=== PATIENT | female | born 1955 ===

== ENCOUNTER 2016-11-14 02:39 | Inpatient (IN) | payer MEDICAID, OTHER ==
[2016-11-14 02:40] VITALS: BMI 32.9
--- NOTE | 2016-11-14 02:42 | C.PDOC ---
History Of Present Illness Patient presents to the ED with complaints of nausea, vomiting, and abdominal pain. Patient notes drinking some EtOH and having a heavy a few hours prior to arrival. Patient denies any fever, diarrhea, or any other complaints at this time. Time Seen by Provider: 11/14/16 02:41 History Per: Patient History/Exam Limitations: no limitations Onset/Duration Of Symptoms: Hrs Current Symptoms Are (Timing): Still Present Context: Food Severity: Moderate Pain Scale Rating Of: 6 Location Of Pain/Discomfort: Epigastric Radiation Of Pain To:: None Quality Of Discomfort: Sharp, "Pain" Associated Symptoms: Nausea, Vomiting. denies: Fever, Chills, Diarrhea Exacerbating Factors: Food Alleviating Factors: None Last Bowel Movement: Yesterday Recent travel outside of the [place]: No Abnormal Vaginal Bleeding: No Past Medical History Reviewed: Historical Data, Nursing Documentation, Vital Signs Vital Signs: Last Vital Signs Temp 98.1 F 11/14/16 02:43 Pulse 92 H 11/14/16 02:43 Resp 14 11/14/16 02:43 BP 158/89 H 11/14/16 02:43 Pulse Ox 98 11/14/16 02:43 - Medical History PMH: Anemia, Arthritis, Asthma, Colonic Polyps, HTN, Hypercholesterolemia Surgical History: Endoscopy Family History: States: Unknown Family Hx - Social History Hx Tobacco Use: No Hx Alcohol Use: No Hx Substance Use: No - Immunization History Hx Tetanus Toxoid Vaccination: No Hx Influenza Vaccination: No Hx Pneumococcal Vaccination: No Review Of Systems Constitutional: Negative for: Fever, Chills, Sweats ENT: Negative for: Throat Pain Cardiovascular: Negative for: Chest Pain Respiratory: Negative for: Cough, Shortness of Breath Gastrointestinal: Positive for: Nausea, Vomiting, Abdominal Pain. Negative for : Diarrhea Genitourinary: Negative for: Dysuria Musculoskeletal: Negative for: Back Pain Skin: Negative for: Rash, Lesions, Jaundice, Bruising Neurological: Negative for: Weakness Psych: Negative for: Anxiety Physical Exam - Physical Exam Appears: Non-toxic, No Acute Distress Skin: Warm, Dry Head: Atraumatic Eye(s): bilateral: Normal Inspection Oral Mucosa: Moist Neck: Supple Chest: Symmetrical Cardiovascular: Rhythm Regular Respiratory: No Accessory Muscle Use, No Rales, No Rhonchi, No Stridor, No Wheezing Gastrointestinal/Abdominal: Soft, Tenderness (RUQ tenderness), No Distention, No Guarding, No Rebound Back: Normal Inspection Extremity: Normal ROM, No Tenderness Extremity: Bilateral: Atraumatic, Normal Color And Temperature Neurological/Psych: Oriented x3, Normal Speech, Normal Cognition Gait: Steady ED Course And Treatment - Laboratory Results Result Diagrams: 11/14/16 03:16 11/14/16 03:16 O2 Sat by Pulse Oximetry: 92 Pulse Ox Interpretation: Normal Critical Care Time - Critical Care Note Total Time (in mins): 30 Documented critical care: time excludes all time spent performing seperately billable procedures. Disposition Discussed With Dr.: Vega Tariq Comment: accepted the pt on his service and took over the care at 5:18PM Doctor Will See Patient In The: ED Counseled Patient/Family Regarding: Studies Performed, Diagnosis - Disposition Disposition: HOSPITALIZED Disposition Time: 02:42 Condition: GUARDED - POA Present On Arrival: Poor Glycemic Control - Clinical Impression Clinical Impression: Pancreatitis, acute, Abdominal pain, Nausea, Vomiting - Scribe Statement The provider has reviewed the documentation as recorded by the Scribkrishan Bush All medical record entries made by the Evelioibe were at my direction and personally dictated by me. I have reviewed the chart and agree that the record accurately reflects my personal performance of the history, physical exam, medical decision making, and the department course for this patient. I have also personally directed, reviewed, and agree with the discharge instructions and disposition. Decision To Admit - Pt Status Changed To: Hospital Disposition Of: Inpatient - Admit Certification Admit to Inpatient:: After my assessment, the patient will require hospitalization for at least two midnights. This is because of the severity of symptoms shown, intensity of services needed, and/or the medical risk in this patient being treated as an outpatient. - InPatient: Physician Admission Certification:: After my assessment, the patient will require hospitalization for at least two midnights. This is because of the severity of symptoms shown, intensity of services needed, and/or the medical risk in this patient being treated as an outpatient. - . Bed Request Type: Regular Admitting Physician: Vega Tariq Patient Diagnosis: Abdominal pain, Nausea, Vomiting, Pancreatitis, acute
[2016-11-14] MEDS ORDERED: Sodium Chloride 0.9% 1,000 ML IV ONE (02:57)
[2016-11-14] MEDS ORDERED: Sodium Chloride 0.9% 1,000 ML ONE (03:04)
[2016-11-14 03:20] LABS: BASO % 0.3 % (0.0-2.0); EOS % 0.3 % (0.0-4.0); HEMATOCRIT 34.7 % (34.0-47.0); LYMPH # 1.5 K/uL (1.0-4.3); LYMPH % 16.9 % (20.0-40.0); MEAN CELL VOLUME 80.4 fL (81.0-99.0); MEAN CORPUSCULAR HEMOGLOBIN 26.4 pg (27.0-31.0); MEAN CORPUSCULAR HGB CONC 32.8 g/dL (33.0-37.0); MEAN PLATELET VOLUME 10.2 fL (7.2-11.7); MONO # 0.4 K/uL (0.0-0.8); MONO % 4.6 % (0.0-10.0); NRBC % 0.1 % (0.0-2.0); RED CELL DISTRIBUTION WIDTH 14.5 % (11.5-14.5); WHITE BLOOD COUNT 8.6 K/uL (4.8-10.8)
[2016-11-14 03:28] LABS: CHLORIDE 98 mmol/L (98-107); POTASSIUM 3.2 mmol/L (3.6-5.2); SODIUM 140 mmol/L (132-148)
[2016-11-14 03:29] LABS: RBC URINE < 1 /hpf (0-3); URINE BACTERIA RARE (<OCC); URINE BILIRUBIN NEGATIVE (NEGATIVE); URINE BLOOD NEGATIVE (NEGATIVE); URINE COLOR Yellow (YELLOW); URINE GLUCOSE (UA) 3+ mg/dL (Normal); URINE KETONE TRACE mg/dL (NEGATIVE); URINE LEUKOCYTE ESTERASE TRACE Leu/uL (Negative); URINE PROTEIN NEGATIVE (NEGATIVE); WBC URINE 1 /hpf (0-5)
[2016-11-14 03:30] LABS: ALB/GLOB RATIO 1.3 (1.0-2.1); ALKALINE PHOSPHATASE 192 U/L (38-126); BILIRUBIN,TOTAL 1.8 mg/dL (0.2-1.3); CARBON DIOXIDE 28 mmol/L (22-30); GFR AFRICAN-AMERICAN > 60
[2016-11-14 03:31] LABS: ALT/SGPT 398 U/L (9-52); BLOOD UREA NITROGEN 14 mg/dL (7-17); CALCIUM 8.9 mg/dl (8.6-10.4); GLUCOSE,RANDOM 237 mg/dL (65-105)
[2016-11-14 03:49] LABS: AST/SGOT 944 U/L (14-36)
[2016-11-14] MEDS ORDERED: Iodixanol 320 MG/ML 100 ML BOTTLE IV ONE (04:22)
--- NOTE | 2016-11-14 05:02 | CT ---
EXAM: CT Abdomen and Pelvis With Intravenous Contrast CLINICAL HISTORY: 61 years old, female; Pain; Abdominal pain; Localized; Right upper quadrant (ruq); Additional info: Ruq pain, elevated liver enzymes TECHNIQUE: Axial computed tomography images of the abdomen and pelvis with intravenous contrast. This CT exam was performed using one or more of the following dose reduction techniques: automated exposure control, adjustment of the mA and/or kV according to patient size, and/or use of iterative reconstruction technique. Coronal and sagittal reformatted images were created and reviewed. CONTRAST: 100 mL of visi administered intravenously. COMPARISON: No relevant prior studies available. FINDINGS: Lower thorax: The bilateral lung bases are clear. ABDOMEN: Liver: No acute findings. Gallbladder and bile ducts: The gallbladder is distended, without calcified stones. No significant intrahepatic biliary ductal dilation is identified. Prominence of the common bile duct is noted measuring 9.5 mm in medial to lateral dimension. Pancreas: There is diffuse peripancreatic inflammatory stranding and fluid, consistent with acute pancreatitis. Spleen: No acute findings. Adrenals: No acute findings. Kidneys and ureters: No acute findings. No hydronephrosis or renal calculi. No discrete solid mass. PELVIS: Bladder: No acute findings. Reproductive: No acute findings. Appendix: The air filled appendix is of normal caliber (series 2, image 62) . ABDOMEN and PELVIS: Stomach and bowel: No obstruction. A fat containing, nonobstructing supraumbilical hernia is identified. Peritoneum: As above. Lymph nodes: No pathologically enlarged lymph nodes. Vasculature: Unremarkable. Bones: No acute fracture. IMPRESSION: Findings consistent with acute pancreatitis, as detailed above.
--- NOTE | 2016-11-14 05:41 | CP.PCM.HP ---
<Olegario Jennie RODGERS - Last Filed: 11/14/16 06:08> History of Present Illness - History of Present Illness History of Present Illness: Patient is a 61 year old female with past medical history of HTN, DM, HLD, GERD, and pancreatitis presents with complaint of abdominal pain, nausea, and vomiting. Patient states that the abdominal pain began around 10pm yesterday evening following a celebratory dinner for her birthday. Patient states she knows that she needs to eat carefully and avoid alcohol due to her history of pancreatitis. Patient and her son and son's girlfriend went out for a 5 course meal accompanied by 5 bottles of wine. Patient vomited 4 times following the meal and told her son around midnight that she needed to go to the ER. Patient states the abdominal pain is in the epigastric region and moves from left to right but does not radiate anywhere else. Patient admits to dizziness with the nausea and vomiting but denies chest pain, palpitations, diarrhea, hematemesis, back pain. Patient states she had seen a business job titles recently and had changed her diet to cut out fat and had been feeling well prior to this event. Patient had prior history of social alcohol use but had completely cut it out due to history of pancreatitis. PMD: clinic PMHx: HTN, GERD, DM, HLD Meds: omeprazole 20mg, metformin 500mg BID, HCTZ 25, fenofibrate 160mg, amlodipine 10mg PSHx: hysterectomy with bilateral oophrectomy FamHx: mother and father with DM and HTN Social Hx: former 1/2 ppd smoker for 30 years, quit 11 years ago; lives with son , works as homemaker Present on Admission - Present on Admission Any Indicators Present on Admission: No Review of Systems - Constitutional Constitutional: absent: Chills, Fever - EENT Eyes: absent: Change in Vision Ears: Dizziness Nose/Mouth/Throat: absent: Nasal Congestion - Cardiovascular Cardiovascular: absent: Chest Pain, Diaphoresis, Dyspnea, Pain Radiating to Arm/ Neck/Jaw, Leg Edema, Palpitations, Rapid Heart Rate - Respiratory Respiratory: absent: Cough, Dyspnea - Gastrointestinal Gastrointestinal: Abdominal Pain, Nausea, Vomiting. absent: Constipation, Diarrhea, Hematemesis, Hematochezia, Loose Stools - Genitourinary Genitourinary: absent: Difficulty Urinating, Dysuria - Musculoskeletal Musculoskeletal: absent: Back Pain - Integumentary Integumentary: absent: Rash, Skin Pain, Jaundice - Neurological Neurological: Dizziness. absent: Focal Weakness, Weakness - Psychiatric Psychiatric: absent: Behavioral Changes Past Patient History - Past Medical History & Family History Past Medical History?: Yes - Past Social History Smoking Status: Never Smoked - CARDIAC Hx Hypercholesterolemia: Yes Hx Hypertension: Yes - PULMONARY Hx Asthma: Yes - NEUROLOGICAL Hx Neurological Disorder: No - HEENT Hx HEENT Problems: No - RENAL Hx Chronic Kidney Disease: No - ENDOCRINE/METABOLIC Hx Endocrine Disorders: Yes Hx Diabetes Mellitus Type 2: Yes - HEMATOLOGICAL/ONCOLOGICAL Hx Anemia: Yes - INTEGUMENTARY Hx Dermatological Problems: No - MUSCULOSKELETAL/RHEUMATOLOGICAL Hx Arthritis: Yes - GASTROINTESTINAL Hx Gall Bladder Disease: Yes Hx Pancreatitis: Yes - GENITOURINARY/GYNECOLOGICAL Hx Genitourinary Disorders: No - PSYCHIATRIC Hx Substance Use: No - SURGICAL HISTORY Hx Surgeries: Yes Hx Hysterectomy: Yes - ANESTHESIA Hx Anesthesia: Yes Hx Anesthesia Reactions: No Hx Malignant Hyperthermia: No Meds Allergies/Adverse Reactions: Allergies Allergy/AdvReac Type Severity Reaction Status Date / Time aspirin AdvReac Mild VOMITING Verified 11/14/16 02:46 Physical Exam - Constitutional Appears: Non-toxic, No Acute Distress - Head Exam Head Exam: ATRAUMATIC, NORMOCEPHALIC - Eye Exam Eye Exam: EOMI, Normal appearance, PERRL - ENT Exam ENT Exam: Mucous Membranes Dry - Neck Exam Neck exam: Negative for: Lymphadenopathy, Tenderness - Respiratory Exam Respiratory Exam: Clear to Auscultation Bilateral. absent: Rales, Rhonchi, Wheezes - Cardiovascular Exam Cardiovascular Exam: +S1, +S2 - GI/Abdominal Exam GI & Abdominal Exam: Normal Bowel Sounds, Soft, Tenderness (epigastric). absent : Distended, Firm, Guarding - Extremities Exam Extremities exam: Positive for: normal inspection. Negative for: calf tenderness, pedal edema - Neurological Exam Neurological exam: Alert - Psychiatric Exam Psychiatric exam: Normal Affect - Skin Skin Exam: Normal Color, Warm Results - Vital Signs Recent Vital Signs: Last Vital Signs Temp 98.5 F 11/14/16 05:17 Pulse 65 11/14/16 05:17 Resp 18 11/14/16 05:17 BP 122/82 11/14/16 05:17 Pulse Ox 92 L 11/14/16 05:18 - Labs Result Diagrams: 11/14/16 03:16 11/14/16 03:16 Assessment & Plan (1) Pancreatitis, acute Assessment and Plan: lipase [address]221 CT abdomen: diffuse peripancreatic inflammatory stranding and fluid consistent with acute pancreatitis patient NPO IVF zofran and morphine prn follow up lipid panel Status: Acute (2) Diabetes Assessment and Plan: hold home metformin for now ISS with accuchecks Status: Acute (3) HLD (hyperlipidemia) Assessment and Plan: will check lipid panel holding home medication for now Status: Acute (4) HTN (hypertension) Assessment and Plan: holding home medication amlodipine 10mg and HCTZ 25mg for now, will restart if necessary Status: Acute (5) Prophylactic measure Assessment and Plan: protonix 40mg daily SCDs Status: Acute <Vega Tariq - Last Filed: 11/14/16 06:35> Results - Vital Signs Recent Vital Signs: Last Vital Signs Temp 98.5 F 11/14/16 05:17 Pulse 65 11/14/16 05:17 Resp 18 11/14/16 05:17 BP 122/82 11/14/16 05:17 Pulse Ox 92 L 11/14/16 05:18 - Labs Result Diagrams: 11/14/16 03:16 11/14/16 03:16 Assessment & Plan - Date & Time Date: 11/14/16 (I have seen and examined the patient. I agree with the findings and plan of care as documented by Dr. Melvin. Patient with acute pancreatitis. History of hyperlipidemia. Check FLP. CT positive for acute pancreatitis as per ED physician. NPO. IVF. Symptomatic treatment. Monitor for acute changes.) Time: 06:34 Attending/Attestation - Attestation I have personally seen and examined this patient.: Yes I have fully participated in the care of the patient.: Yes I have reviewed all pertinent clinical information: Yes
[2016-11-14] MEDS: Sodium Chloride 0.9% 1,000 ML IV SCH ×3 (06:14→21:57)
[2016-11-14 06:52] LABS: CHOLESTEROL 211 mg/dL (0-199)
[2016-11-14] MEDS: (Novolin R) Insulin Human Regular 100 units/ml vial SC SCH ×4 (07:51→21:57)
[2016-11-14] MEDS ORDERED: Potassium Chloride 20 mEq ER Tab PO STA (09:51)
--- NOTE | 2016-11-14 17:17 | CP.PCM.CON ---
<Jessie Dumont - Last Filed: 11/14/16 18:30> History of Present Illness - History of Present Illness History of Present Illness: General surgery Dr. Gerard CC: Epigastric abdominal pain HPI: 61 y/o F w/ PMHx of pancreatitis, DM2, GERD, HLD, and HTN presents to the ED W/ c/o epigastric abd pain and nausea. The pain is described as constant, sharp and began ~10 pm yesterday night following her birthday dinner, which involved a 5-course meal and 5 bottles of wine. pain is localized to the epigastric region w/ radiation from left to right. Pain is >10/10 at its worst but is currently a 6-7/10 currently due to the morphine. Pt has a Hx of gallstone pancreatitis and had been instructed to avoid alcohol and eat healthier. Pt admits to vomiting x 7-8 episodes after 10 pm and was brought to the ER by her son around midnight. Pt denies BM since pain began. Pt is requesting surgery as she states that these episodes of pancreatitis have become bothersome and family members have reported success with surgery. Pt admits to N/V, epigastric abd pain, bloating. Pt denies F/V, CP, palpitations, SOB, D/C, melena, hemtochezia, dysuria, hematuris. PMHx: DM2, GERD, HLD, HTN Meds: reviewed in chart Allergy: ASA - vomiting PSHx:: HOMER w/ BSO SHx: former smoker, quit 11 years ago, 1/2ppd x 30yrs; admits to previous EtOH abuse, quit drinking after several episodes of pancreatitis; lives w/ son; works as a homemaker. FHx: DM, HTN Review of Systems - Review of Systems All systems: reviewed and no additional remarkable complaints except (what is in HPI) Past Patient History - Past Medical History & Family History Past Medical History?: Yes - Past Social History Smoking Status: Former Smoker - CARDIAC Hx Hypercholesterolemia: Yes Hx Hypertension: Yes - PULMONARY Hx Respiratory Disorders: No - NEUROLOGICAL Hx Neurological Disorder: No - HEENT Hx HEENT Problems: No - RENAL Hx Chronic Kidney Disease: No - ENDOCRINE/METABOLIC Hx Endocrine Disorders: Yes Hx Diabetes Mellitus Type 2: Yes - HEMATOLOGICAL/ONCOLOGICAL Hx Anemia: Yes - INTEGUMENTARY Hx Dermatological Problems: No - MUSCULOSKELETAL/RHEUMATOLOGICAL Hx Arthritis: Yes Hx Falls: No - GASTROINTESTINAL Hx Gall Bladder Disease: Yes Hx Pancreatitis: Yes - GENITOURINARY/GYNECOLOGICAL Hx Genitourinary Disorders: No - PSYCHIATRIC Hx Psychophysiologic Disorder: No - SURGICAL HISTORY Hx Surgeries: Yes Hx Hysterectomy: Yes - ANESTHESIA Hx Anesthesia: Yes Hx Anesthesia Reactions: No Hx Malignant Hyperthermia: No Meds Allergies/Adverse Reactions: Allergies Allergy/AdvReac Type Severity Reaction Status Date / Time aspirin AdvReac Mild VOMITING Verified 11/14/16 02:46 - Medications Medications: Current Medications Sodium Chloride (Sodium Chloride 0.9%) 1,000 mls @ 150 mls/hr IV .[id number] [facility] Last Admin: 11/14/16 13:47 Dose: Not Given Insulin Human Regular (Novolin R) 0 unit SC ACHS [facility] PRN Reason: Protocol Last Admin: 11/14/16 11:33 Dose: Not Given Morphine Sulfate (Morphine) 2 mg IVP Q4 PRN PRN Reason: Pain, moderate (4-7) Last Admin: 11/14/16 11:29 Dose: 2 mg Ondansetron HCl (Zofran Inj) 4 mg IVP DAILY@ONCE PRN PRN Reason: Nausea/Vomiting Last Admin: 11/14/16 11:29 Dose: 4 mg Pantoprazole Sodium (Protonix Inj) 40 mg IVP DAILY [facility] Last Admin: 11/14/16 09:34 Dose: 40 mg Pneumococcal Polyvalent Vaccine (Pneumovax 23 Vaccine) 0.5 ml IM .ONCE ONE Stop: 11/16/16 10:01 Physical Exam - Constitutional Appears: Non-toxic, No Acute Distress - Head Exam Head Exam: NORMAL INSPECTION - ENT Exam ENT Exam: Mucous Membranes Moist - Respiratory Exam Respiratory Exam: Clear to Auscultation Bilateral, NORMAL BREATHING PATTERN. absent: Accessory Muscle Use, Respiratory Distress - Cardiovascular Exam Cardiovascular Exam: RRR - GI/Abdominal Exam GI & Abdominal Exam: Diminished Bowel Sounds, Guarding (voluntary), Soft, Tenderness (diffusely TTP w/ RUQ/Epigastric greatest ). absent: Distended, Rebound Results - Vital Signs Recent Vital Signs: Last Vital Signs Temp 98 F 11/14/16 07:32 Pulse 64 11/14/16 08:58 Resp 16 11/14/16 07:32 BP 119/79 11/14/16 07:32 Pulse Ox 96 11/14/16 07:32 - Labs Result Diagrams: 11/14/16 03:16 11/14/16 03:16 Labs: Laboratory Results - last 24 hr 11/14/16 11/14/16 11/14/16 06:15 07:14 11:28 POC Glucose (mg/dL) 201 H 117 H Triglycerides 51 Cholesterol 211 H LDL Cholesterol Direct 77 HDL Cholesterol 89 H 11/14/16 16:21 POC Glucose (mg/dL) 91 Triglycerides Cholesterol LDL Cholesterol Direct HDL Cholesterol - Imaging and Cardiology CT scan - abdomen Status: Image reviewed by me, Report reviewed by me US - abdomen Status: Pending Assessment & Plan - Assessment and Plan (Free Text) Assessment: 61 y/o F Acute pancreatitis 2/2 gallstones vs EtOH - NPO, IVF@>150 - Zofran 4mg Q4 PRN nausea - Dilaudid 1mg Q4 PRN pain - Zosyn 3.375mg Q8h - GI consult - will likely need MRCP/ERCP - f/u Abd US - trend LFTs and Lipase - possible surgery once LFTs and Lipase normalize. Pt discussed w/ Dr. Rajani Dumont DO PGY1 <Lester Gerard - Last Filed: 11/20/16 10:26> Results - Vital Signs Recent Vital Signs: Last Vital Signs Temp 99.5 F 11/19/16 07:40 Pulse 81 11/19/16 08:00 Resp 20 11/19/16 07:40 BP 137/75 11/19/16 07:40 Pulse Ox 92 L 11/19/16 07:40 - Labs Result Diagrams: 11/18/16 08:19 11/18/16 08:19 Attending/Attestation - Attestation I have personally seen and examined this patient.: Yes I have fully participated in the care of the patient.: Yes I have reviewed all pertinent clinical information: Yes Notes (Text): 11/20/16 10:24 Pt was seen and examined at bedside on 11/15/16 Agree with above note and assessment Pt with GS pancreatitis with Cholelithiasis PE: Neuro : AAOx3, GCS : 15 , No focal deficite Skin: warm, dry, no ulceration Extremity: 2 + Palpable pulses, no edema, no deformity. MRCP today GI consult C.w IV antibiotics We will f/u Plan d.w pt in detail
--- NOTE | 2016-11-14 17:48 | US ---
HISTORY: cbd stone,gallstone COMPARISON: Comparison is made to the previous same-day CT of the abdomen and pelvis. TECHNIQUE: Sonographic evaluation of the abdomen. FINDINGS: LIVER: Measures 14 cm. Mild diffuse increased echogenicity of the liver parenchyma. No mass. No intrahepatic bile duct dilatation. GALLBLADDER: Multiple gallstones are seen. Positive sonographic Williamson's sign reported by the dental technologist. However no definite evidence of significant pericholecystic fluid or significant gallbladder wall thickening. COMMON BILE DUCT: Measures 7 mm. No stones. No dilatation. PANCREAS: Limited assessment of the pancreas due to overlying bowel gas. Heterogeneous echotexture of the visualized portion of the pancreas consistent with the patient's history of acute pancreatitis. RIGHT KIDNEY: Measures 12.5 x 6.1 x 4.9cm. Again seen is a large cystic lesion at the right kidney measures 4.7 x 4.7 x 5.2 centimeter. LEFT KIDNEY: Measures 9.5 x 6.2 x 5.2cm. Normal echogenicity. No calculus, mass, or hydronephrosis. SPLEEN: Normal in size and contour. No mass. AORTA: No aneurysmal dilatation. IVC: Unremarkable. OTHER FINDINGS: None. IMPRESSION: Multiple gallstones without definite ultrasound evidence of acute cholecystitis. Upper normal size of proximal CBD. The possibility of small stone at the distal CBD is not totally excluded in this study. Heterogeneous pancreas obscured by overlying bowel gas. 5.2 centimeters cystic lesion at the right kidney.
--- NOTE | 2016-11-14 18:45 | CP.PCM.CON ---
History of Present Illness - History of Present Illness History of Present Illness: 61 yo female admitted with acute onset of epigastric pain and vomiting following a celebratory meal included five courses and shared five bottles of wine with family members. Son claims she had 3-4 glasses of wine. SHe was found to have acute pancreatitis and elevated transaminiases. CT and Sonogram show acute inflammation of the pancreas with Sono showing multiple gallstones and a 7mm CBD. SHe was admitted to [facility] with similar presentation in July and told she needed GB surgery as an outpatient. She denies drinkiing at that time. Her pain is better now compared to admission. No h/o hepatiitis, IVDA or other liver diseases. Review of Systems - Cardiovascular Cardiovascular: absent: Chest Pain, Chest Pain at Rest - Respiratory Respiratory: absent: Cough, Dyspnea - Gastrointestinal Gastrointestinal: As Per HPI, Abdominal Pain, Nausea, Vomiting Past Patient History - Past Medical History & Family History Past Medical History?: Yes - Past Social History Smoking Status: Former Smoker Alcohol: Social Drugs: Denies - CARDIAC Hx Hypercholesterolemia: Yes Hx Hypertension: Yes - PULMONARY Hx Respiratory Disorders: No - NEUROLOGICAL Hx Neurological Disorder: No - HEENT Hx HEENT Problems: No - RENAL Hx Chronic Kidney Disease: No - ENDOCRINE/METABOLIC Hx Endocrine Disorders: Yes Hx Diabetes Mellitus Type 2: Yes - HEMATOLOGICAL/ONCOLOGICAL Hx Anemia: Yes - INTEGUMENTARY Hx Dermatological Problems: No - MUSCULOSKELETAL/RHEUMATOLOGICAL Hx Arthritis: Yes Hx Falls: No - GASTROINTESTINAL Hx Gall Bladder Disease: Yes Hx Pancreatitis: Yes - GENITOURINARY/GYNECOLOGICAL Hx Genitourinary Disorders: No - PSYCHIATRIC Hx Psychophysiologic Disorder: No - SURGICAL HISTORY Hx Surgeries: Yes Hx Hysterectomy: Yes - ANESTHESIA Hx Anesthesia: Yes Hx Anesthesia Reactions: No Hx Malignant Hyperthermia: No Meds Allergies/Adverse Reactions: Allergies Allergy/AdvReac Type Severity Reaction Status Date / Time aspirin AdvReac Mild VOMITING Verified 11/14/16 02:46 - Medications Medications: Current Medications Sodium Chloride (Sodium Chloride 0.9%) 1,000 mls @ 150 mls/hr IV .Q6H40M [facility] Last Admin: 11/14/16 13:47 Dose: Not Given Insulin Human Regular (Novolin R) 0 unit SC ACHS [facility] PRN Reason: Protocol Last Admin: 11/14/16 11:33 Dose: Not Given Morphine Sulfate (Morphine) 2 mg IVP Q4 PRN PRN Reason: Pain, moderate (4-7) Last Admin: 11/14/16 11:29 Dose: 2 mg Ondansetron HCl (Zofran Inj) 4 mg IVP DAILY@ONCE PRN PRN Reason: Nausea/Vomiting Last Admin: 11/14/16 11:29 Dose: 4 mg Pantoprazole Sodium (Protonix Inj) 40 mg IVP DAILY [facility] Last Admin: 11/14/16 09:34 Dose: 40 mg Pneumococcal Polyvalent Vaccine (Pneumovax 23 Vaccine) 0.5 ml IM .ONCE ONE Stop: 11/16/16 10:01 Physical Exam - Constitutional Appears: No Acute Distress - Head Exam Head Exam: ATRAUMATIC, NORMOCEPHALIC - Eye Exam Eye Exam: EOMI, PERRL - Respiratory Exam Respiratory Exam: NORMAL BREATHING PATTERN - Cardiovascular Exam Cardiovascular Exam: REGULAR RHYTHM, +S1 - GI/Abdominal Exam GI & Abdominal Exam: Distended, Soft, Tenderness. absent: Mass, Normal Bowel Sounds, Organomegaly, Rebound - Rectal Exam Rectal Exam: Deferred - Extremities Exam Extremities exam: Positive for: normal inspection - Neurological Exam Neurological exam: Alert, Oriented x3 - Psychiatric Exam Psychiatric exam: Normal Affect, Normal Mood - Skin Skin Exam: Dry, Warm Results - Vital Signs Recent Vital Signs: Last Vital Signs Temp 98 F 11/14/16 07:32 Pulse 64 11/14/16 08:58 Resp 16 11/14/16 07:32 BP 119/79 11/14/16 07:32 Pulse Ox 96 11/14/16 07:32 - Labs Result Diagrams: 11/14/16 03:16 11/14/16 03:16 Labs: Laboratory Results - last 24 hr 11/14/16 11/14/16 11/14/16 06:15 07:14 11:28 POC Glucose (mg/dL) 201 H 117 H Triglycerides 51 Cholesterol 211 H LDL Cholesterol Direct 77 HDL Cholesterol 89 H 11/14/16 16:21 POC Glucose (mg/dL) 91 Triglycerides Cholesterol LDL Cholesterol Direct HDL Cholesterol - Imaging and Cardiology CT scan - abdomen Status: Image reviewed by me, Report reviewed by me US - abdomen Status: Report reviewed by me Assessment & Plan - Assessment and Plan (Free Text) Assessment: 61 yo female with recurrent acute pancreatitis. While alcohol may have contiributed to the etiology and given a flain in her AST>ALT it seems highly suggestive that she may have passed or has a retained CBD stone given the GB findings on Sonogram. May need ERCP followed by Lap Cholecystectomy. Possibility of alcoholic pancreatitis and hepatitis also to be considered. r/o viral hepatitis. (chronic or acute) IV fluids Viral markers and repeat LFTs and Lipase in am Surgical consult noted MRCP in am to exclude presence of CBD stone. If negative would schedule Lap Marry prior to discharge after the pancreatitis has cooled down with fluids and bowel rest. If MRCP is needed would consult Dr Fonseca for a therapeutic endoscopy consultation. Will follow with you. Thank you.
[2016-11-14] MEDS ORDERED: Morphine 4 MG/ML VIAL IVP PRN (19:47)
--- NOTE | 2016-11-14 19:48 | CP.PCM.PN ---
<Kunal Duff - Last Filed: 11/14/16 19:32> Subjective - Date & Time of Evaluation Date of Evaluation: 11/14/16 Time of Evaluation: 09:58 - Subjective Subjective: Pt seen and examined. Pt complaining of mid epigastric abdominal pain and nausea. Pt reports that she vomited 4 times this am. Pt denies fever, chills, chest pain, shortness of breath, diarrhea, constipation, hematemesis, hematochezia, melena. Objective - Vital Signs/Intake and Output Vital Signs (last 24 hours): Temp Pulse Resp BP Pulse Ox 98 F 64 16 119/79 96 11/14/16 07:32 11/14/16 08:58 11/14/16 07:32 11/14/16 07:32 11/14/16 07:32 - Medications Medications: Current Medications Sodium Chloride (Sodium Chloride 0.9%) 1,000 mls @ 150 mls/hr IV .Q6H40M [facility] Last Admin: 11/14/16 13:47 Dose: Not Given Insulin Human Regular (Novolin R) 0 unit SC ACHS [facility] PRN Reason: Protocol Last Admin: 11/14/16 11:33 Dose: Not Given Morphine Sulfate (Morphine) 2 mg IVP Q4 PRN PRN Reason: Pain, moderate (4-7) Last Admin: 11/14/16 11:29 Dose: 2 mg Ondansetron HCl (Zofran Inj) 4 mg IVP DAILY@ONCE PRN PRN Reason: Nausea/Vomiting Last Admin: 11/14/16 11:29 Dose: 4 mg Pantoprazole Sodium (Protonix Inj) 40 mg IVP DAILY [facility] Last Admin: 11/14/16 09:34 Dose: 40 mg Pneumococcal Polyvalent Vaccine (Pneumovax 23 Vaccine) 0.5 ml IM .ONCE ONE Stop: 11/16/16 10:01 - Constitutional Appears: No Acute Distress - Head Exam Head Exam: ATRAUMATIC, NORMOCEPHALIC - Eye Exam Eye Exam: EOMI, PERRL - ENT Exam ENT Exam: Mucous Membranes Moist. absent: Mucous Membranes Dry - Neck Exam Neck Exam: Full ROM. absent: Lymphadenopathy - Respiratory Exam Respiratory Exam: Clear to Ausculation Bilateral. absent: Rales, Rhonchi, Wheezes - Cardiovascular Exam Cardiovascular Exam: +S1, +S2. absent: Gallop, Rubs - GI/Abdominal Exam GI & Abdominal Exam: Soft, Tenderness, Diminished Bowel Sounds - Extremities Exam Extremities Exam: Full ROM. absent: Pedal Edema - Neurological Exam Neurological Exam: Alert, Awake, Oriented x3 - Psychiatric Exam Psychiatric exam: Normal Affect, Normal Mood - Skin Skin Exam: Normal Color, Warm Assessment and Plan - Assessment and Plan (Free Text) Assessment: Acute Pancreatitis: Lipase 67455 AST/ALT: 944/398 T. bili - 1.8 Alk phos - 192 GI, Dr. Gomez, consulted. Help appreciated. General Surgery, Dr. Gerard, consulted. Help appreciated. Abd/pelvis CT - findings consistent with acute pancreatitis, common bile duct 9.5 mm, gallbladder distended without calcified stones (please see full report) Abdominal ultrasound - multiple gallstones without evidence of cholecystitis, upper normal proximal size of CBD, possibility of small stone in CBD not totally excluded (please see full report) Trend LFTS and Lipase, as per GI and Surgery Possible cholecystectomy once LFTs and Lipase stabilize as per surgery Hepatitis panel pending MRCP in the am to r/o CBD stone NS IVF 150 cc/hr Morphine 3 mg IV q3h prn for pain Zofran 4 mg Iv q6h prn for nausea Hypokalemia: K+ 3.2 today K-dur 40 meq given Diabetes Mellitus: Insulin sliding scale Accuchecks achs Prophylactic Measures: GI: Protonix 40 mg Iv qd DVT: SCDs <Mateo Bee H - Last Filed: 11/15/16 16:26> Objective - Vital Signs/Intake and Output Vital Signs (last 24 hours): Temp Pulse Resp BP Pulse Ox 98.9 F 67 18 119/61 96 11/15/16 08:00 11/15/16 08:00 11/15/16 08:00 11/15/16 08:00 11/15/16 08:00 Intake and Output: 11/15/16 11/15/16 06:59 18:59 Intake Total 1000 1300 Balance 1000 1300 - Medications Medications: Current Medications Sodium Chloride (Sodium Chloride 0.9%) 1,000 mls @ 150 mls/hr IV .Q6H40M [facility] Last Admin: 11/15/16 08:57 Dose: Not Given Piperacillin Sod/Tazobactam (Sod 3.375 gm/ Sodium Chloride) 100 mls @ 200 mls/ hr IVPB Q8H [facility] Last Admin: 11/15/16 11:59 Dose: 200 mls/hr Insulin Human Regular (Novolin R) 0 unit SC ACHS [facility] PRN Reason: Protocol Last Admin: 11/15/16 11:40 Dose: Not Given Morphine Sulfate (Morphine) 3 mg IVP Q3 PRN PRN Reason: Pain, moderate (4-7) Ondansetron HCl (Zofran Inj) 4 mg IVP Q6H PRN PRN Reason: Nausea/Vomiting Pantoprazole Sodium (Protonix Inj) 40 mg IVP DAILY [facility] Last Admin: 11/15/16 11:02 Dose: 40 mg Pneumococcal Polyvalent Vaccine (Pneumovax 23 Vaccine) 0.5 ml IM .ONCE ONE Stop: 11/16/16 10:01 - Labs Labs: 11/15/16 06:57 11/15/16 06:57 Attending/Attestation - Attestation I have personally seen and examined this patient.: Yes I have fully participated in the care of the patient.: Yes I have reviewed all pertinent clinical information, including history, physical exam and plan: Yes Notes (Text): Medical Attending: Patient was seen and examined by me. Agree with the above note by the resident - the patient was reported drinking last night however considering her story and presentation as well as the elevated Lipase and transaminitis, we need to also consider gall stone pancreatitis causing this as well. This has happened before in the past. Will get U/S of the abdomen to assess for stones in the gallbladder and in the CBD. thank you Mateo Bee
[2016-11-15] MEDS: Sodium Chloride 0.9% 1,000 ML IV SCH ×3 (01:45→08:57)
[2016-11-15 07:08] LABS: BASO % 0.3 % (0.0-2.0); EOS % 0.5 % (0.0-4.0); HEMATOCRIT 30.4 % (34.0-47.0); LYMPH # 1.9 K/uL (1.0-4.3); LYMPH % 21.3 % (20.0-40.0); MEAN CELL VOLUME 80.2 fL (81.0-99.0); MEAN CORPUSCULAR HEMOGLOBIN 26.2 pg (27.0-31.0); MEAN CORPUSCULAR HGB CONC 32.7 g/dL (33.0-37.0); MEAN PLATELET VOLUME 10.2 fL (7.2-11.7); MONO # 0.5 K/uL (0.0-0.8); MONO % 5.4 % (0.0-10.0); RED CELL DISTRIBUTION WIDTH 14.6 % (11.5-14.5); WHITE BLOOD COUNT 8.9 K/uL (4.8-10.8)
[2016-11-15] MEDS: (Novolin R) Insulin Human Regular 100 units/ml vial SC SCH ×4 (07:35→21:31)
[2016-11-15 07:41] LABS: CHLORIDE 109 mmol/L (98-107)
[2016-11-15 07:42] LABS: POTASSIUM 3.3 mmol/L (3.6-5.2); SODIUM 144 mmol/L (132-148)
[2016-11-15 07:44] LABS: ALB/GLOB RATIO 1.1 (1.0-2.1); ALKALINE PHOSPHATASE 123 U/L (38-126); AST/SGOT 220 U/L (14-36); BILIRUBIN,DIRECT 0.4 mg/dL (0.0-0.4); BILIRUBIN,TOTAL 0.6 mg/dL (0.2-1.3); BLOOD UREA NITROGEN 8 mg/dL (7-17); CARBON DIOXIDE 26 mmol/L (22-30); GFR AFRICAN-AMERICAN > 60; GLUCOSE,RANDOM 87 mg/dL (65-105); PHOSPHOROUS 2.5 mg/dL (2.5-4.5); TOTAL PROTEIN 6.3 g/dL (6.3-8.3)
[2016-11-15 07:45] LABS: ALT/SGPT 202 U/L (9-52); CALCIUM 8.2 mg/dl (8.6-10.4)
[2016-11-15 08:08] LABS: AMYLASE 1408 U/L (30-110)
--- NOTE | 2016-11-15 09:22 | CP.PCM.PN ---
<JuliaJessie - Last Filed: 11/15/16 09:17> Subjective - Date & Time of Evaluation Date of Evaluation: 11/15/16 Time of Evaluation: 07:00 - Subjective Subjective: General Surgery Dr. Gerard Pt S&E @bedside. NAEO. reports significant improvement in abd pain. denies F/C, N/V. (-) BM. pt is NPO requesting liquids. Objective - Vital Signs/Intake and Output Vital Signs (last 24 hours): Temp Pulse Resp BP Pulse Ox 98.9 F 67 18 119/61 96 11/15/16 08:00 11/15/16 08:00 11/15/16 08:00 11/15/16 08:00 11/15/16 08:00 Intake and Output: 11/15/16 11/15/16 06:59 18:59 Intake Total 1000 Balance 1000 - Medications Medications: Current Medications Sodium Chloride (Sodium Chloride 0.9%) 1,000 mls @ 150 mls/hr IV .Q6H40M [facility] Last Admin: 11/15/16 08:57 Dose: Not Given Insulin Human Regular (Novolin R) 0 unit SC ACHS [facility] PRN Reason: Protocol Last Admin: 11/15/16 07:35 Dose: Not Given Morphine Sulfate (Morphine) 3 mg IVP Q3 PRN PRN Reason: Pain, moderate (4-7) Ondansetron HCl (Zofran Inj) 4 mg IVP Q6H PRN PRN Reason: Nausea/Vomiting Pantoprazole Sodium (Protonix Inj) 40 mg IVP DAILY [facility] Last Admin: 11/14/16 09:34 Dose: 40 mg Pneumococcal Polyvalent Vaccine (Pneumovax 23 Vaccine) 0.5 ml IM .ONCE ONE Stop: 11/16/16 10:01 - Labs Labs: 11/15/16 06:57 11/15/16 06:57 Laboratory Tests 11/15/16 06:57 Calcium 8.2 L Phosphorus 2.5 Magnesium 2.0 Total Bilirubin 0.6 Direct Bilirubin 0.4 AST 220 H D ALT 202 H D Alkaline Phosphatase 123 Total Protein 6.3 Albumin 3.3 L D Amylase 1408 H Lipase 3104 H Hepatitis A IgM Ab Negative Hep Bs Antigen Negative Hep Bs Antibody Positive Hep B Core IgM Ab Negative Hepatitis C Antibody Negative - Constitutional Appears: Non-toxic, No Acute Distress - Head Exam Head Exam: NORMAL INSPECTION - Eye Exam Eye Exam: Normal appearance - ENT Exam ENT Exam: Mucous Membranes Moist - Respiratory Exam Respiratory Exam: NORMAL BREATHING PATTERN. absent: Accessory Muscle Use, Respiratory Distress - GI/Abdominal Exam GI & Abdominal Exam: Soft. absent: Distended, Guarding, Tenderness, Rebound - Extremities Exam Extremities Exam: Normal Inspection - Neurological Exam Neurological Exam: Alert, Awake, Oriented x3 - Psychiatric Exam Psychiatric exam: Normal Affect, Normal Mood - Skin Skin Exam: Dry, Intact, Normal Color, Warm Assessment and Plan - Assessment and Plan (Free Text) Assessment: 61 y/o F w/ acute pancreatitis 2/2 EtOH vs cholelithiasis - cont NPO; IVF - cont pain management - cont Zofran - f/u GI recs - may need MRCP to further evaluate CBD. Pt discussed w/ Dr. Leila Dumont DO PGY1 <Lester Gerard - Last Filed: 11/20/16 10:28> Objective - Vital Signs/Intake and Output Vital Signs (last 24 hours): Temp Pulse Resp BP Pulse Ox 99.5 F 81 20 137/75 92 L 11/19/16 07:40 11/19/16 08:00 11/19/16 07:40 11/19/16 07:40 11/19/16 07:40 - Labs Labs: 11/18/16 08:19 11/18/16 08:19 PT 13.3 SECONDS (9.7-12.2) H 11/17/16 07:02 INR 1.2 11/17/16 07:02 APTT 27 SECONDS (21-34) 11/17/16 07:02 Attending/Attestation - Attestation I have personally seen and examined this patient.: Yes I have fully participated in the care of the patient.: Yes I have reviewed all pertinent clinical information, including history, physical exam and plan: Yes Notes (Text): 11/20/16 10:27 Pt was seen and examined at bedside on 11/15/16 Agree with above note and assessment Pt with GS pancreatitis with Cholelithiasis MRCP GI consult C.w IV antibiotics We will f/u Plan d.w pt in detail
[2016-11-15] MEDS ORDERED: Potassium Chloride 20 mEq ER Tab PO STA (09:56)
[2016-11-15] MEDS ORDERED: Gadodiamide 287 MG/ML VIAL (15ML) IV ONE (10:04)
[2016-11-15] MEDS: Potassium Chloride 10 mEq 100 ML IVPB SCH ×3 (10:30→12:00)
--- NOTE | 2016-11-15 11:07 | MRI ---
MRI abdomen without/with IV contrast MRCP Indication: Acute pancreatitis, gallstones rule out CBD stone Technique: Multiplanar, multi sequence magnetic resonance images of the abdomen were obtained without and with the administration of intravenous gadolinium using a multi phase abdomen protocol. Rotating maximum intensity projection images of the biliary system were generated. A total of 1014 images submitted for review Comparison: Abdominal ultrasound 11/14/2016, CT abdomen and pelvis with contrast performed 11/14/2016 Findings: Cholelithiasis. There is no intrahepatic biliary ductal dilatation. The visualized portions of the common bile duct appear within normal limits of caliber and tapers distally. The pancreatic duct does not appear dilated. No filling defects are seen in the common bile duct or pancreatic duct. Pancreatic prominence/ edema and associated peripancreatic fluid compatible with provided history of acute pancreatitis. Mild hepatic steatosis. The liver, spleen, and adrenal glands appear otherwise unremarkable. The kidneys enhance symmetrically. 4.5 cm right cyst . No hydronephrosis. Fat containing ventral wall hernia. No enlarged abdominal lymph nodes are appreciated. Limited views of the inferior thorax appear unremarkable. Impression: Peripancreatic fluid and pancreatic prominence/edema compatible with provided history of acute pancreatitis. Recommend correlation with amylase and lipase. Cholelithiasis. Fat containing ventral wall hernia. Hepatic steatosis. 4.5 cm right renal cyst.
--- NOTE | 2016-11-15 11:12 | CP.PCM.PN ---
Subjective - Date & Time of Evaluation Date of Evaluation: 11/15/16 Time of Evaluation: 11:09 - Subjective Subjective: Pain much improved and no N/V. LFTs, Lipase, Amylase also much improved. MRCP- no CBD stone or ductal dilatation, Gallstones noted. Objective - Vital Signs/Intake and Output Vital Signs (last 24 hours): Temp Pulse Resp BP Pulse Ox 98.9 F 67 18 119/61 96 11/15/16 08:00 11/15/16 08:00 11/15/16 08:00 11/15/16 08:00 11/15/16 08:00 Intake and Output: 11/15/16 11/15/16 06:59 18:59 Intake Total 1000 Balance 1000 - Medications Medications: Current Medications Sodium Chloride (Sodium Chloride 0.9%) 1,000 mls @ 150 mls/hr IV .Q6H40M [facility] Last Admin: 11/15/16 08:57 Dose: Not Given Potassium Chloride (Potassium Chloride 10 Meq/100 Ml) 100 mls @ 100 mls/hr IVPB Q1H [facility] Stop: 11/15/16 12:29 Last Admin: 11/15/16 10:30 Dose: 100 mls/hr Insulin Human Regular (Novolin R) 0 unit SC ACHS [facility] PRN Reason: Protocol Last Admin: 11/15/16 07:35 Dose: Not Given Morphine Sulfate (Morphine) 3 mg IVP Q3 PRN PRN Reason: Pain, moderate (4-7) Ondansetron HCl (Zofran Inj) 4 mg IVP Q6H PRN PRN Reason: Nausea/Vomiting Pantoprazole Sodium (Protonix Inj) 40 mg IVP DAILY [facility] Last Admin: 11/15/16 11:02 Dose: 40 mg Pneumococcal Polyvalent Vaccine (Pneumovax 23 Vaccine) 0.5 ml IM .ONCE ONE Stop: 11/16/16 10:01 - Labs Labs: 11/15/16 06:57 11/15/16 06:57 - Constitutional Appears: No Acute Distress - Head Exam Head Exam: ATRAUMATIC, NORMOCEPHALIC - Eye Exam Eye Exam: absent: Scleral icterus - Respiratory Exam Respiratory Exam: NORMAL BREATHING PATTERN - Cardiovascular Exam Cardiovascular Exam: REGULAR RHYTHM, +S1 - GI/Abdominal Exam GI & Abdominal Exam: Soft, Tenderness, Normal Bowel Sounds. absent: Rigid, Mass , Rebound Additional comments: epigastric tenderness and guarding to deep palpation. Improved from yesterday. - Extremities Exam Extremities Exam: Normal Inspection Assessment and Plan (1) Pancreatitis, acute Assessment & Plan: Pancreatitis and abnormal LFTs likely due to passage of CBD stone based on pattern of rapid enzyme fall and MRCP results. Clinically improving. No need for ERCP pre-operatively though IOC would be of benefit to fully clear the CBD. Surgical follow up for timing of Laparoscopic Cholecystectomy when pancreatitis has improved later this week. In view of recurrent pancreatitis within the past three months I would favor not bringing her back for surgery as an out patient. Will follow as needed. No further GI work up at this time. Status: Acute (2) Cholelithiasis Assessment & Plan: Surgical team for timing of Lap Marry with IOC if possible Status: Acute (3) Abnormal transaminases Assessment & Plan: Viral markers negative for acute/chronic Hepatitis. Rapid rise and fall suggestive of passage of CBD stone. Await surgical team for Lap Marry prior to discharge. Status: Acute
[2016-11-15] MEDS: Piperacillin/Tazobact 3.375 GM in Sodium Chloride 100 ML IVPB SCH ×2 (11:59→19:40)
--- NOTE | 2016-11-15 15:59 | CP.PCM.PN ---
<Kunal Duff - Last Filed: 11/15/16 15:56> Subjective - Date & Time of Evaluation Date of Evaluation: 11/15/16 Time of Evaluation: 07:32 - Subjective Subjective: Pt seen and examined. Pt reports that her abdominal pain and nausea have improved. Pt denies fever, chills, chest pain, shortness of breath, vomiting. Objective - Vital Signs/Intake and Output Vital Signs (last 24 hours): Temp Pulse Resp BP Pulse Ox 98.9 F 67 18 119/61 96 11/15/16 08:00 11/15/16 08:00 11/15/16 08:00 11/15/16 08:00 11/15/16 08:00 Intake and Output: 11/15/16 11/15/16 06:59 18:59 Intake Total 1000 1300 Balance 1000 1300 - Medications Medications: Current Medications Sodium Chloride (Sodium Chloride 0.9%) 1,000 mls @ 150 mls/hr IV .Q6H40M [facility] Last Admin: 11/15/16 08:57 Dose: Not Given Piperacillin Sod/Tazobactam (Sod 3.375 gm/ Sodium Chloride) 100 mls @ 200 mls/ hr IVPB Q8H [facility] Last Admin: 11/15/16 11:59 Dose: 200 mls/hr Insulin Human Regular (Novolin R) 0 unit SC ACHS [facility] PRN Reason: Protocol Last Admin: 11/15/16 11:40 Dose: Not Given Morphine Sulfate (Morphine) 3 mg IVP Q3 PRN PRN Reason: Pain, moderate (4-7) Ondansetron HCl (Zofran Inj) 4 mg IVP Q6H PRN PRN Reason: Nausea/Vomiting Pantoprazole Sodium (Protonix Inj) 40 mg IVP DAILY [facility] Last Admin: 11/15/16 11:02 Dose: 40 mg Pneumococcal Polyvalent Vaccine (Pneumovax 23 Vaccine) 0.5 ml IM .ONCE ONE Stop: 11/16/16 10:01 - Labs Labs: 11/15/16 06:57 11/15/16 06:57 - Constitutional Appears: No Acute Distress - Head Exam Head Exam: ATRAUMATIC, NORMOCEPHALIC - Eye Exam Eye Exam: EOMI, PERRL - ENT Exam ENT Exam: Mucous Membranes Moist. absent: Mucous Membranes Dry - Neck Exam Neck Exam: Full ROM. absent: Lymphadenopathy - Respiratory Exam Respiratory Exam: Clear to Ausculation Bilateral. absent: Rales, Rhonchi, Wheezes - Cardiovascular Exam Cardiovascular Exam: +S1, +S2. absent: Gallop, Rubs - GI/Abdominal Exam GI & Abdominal Exam: Soft, Tenderness. absent: Distended - Extremities Exam Extremities Exam: Full ROM. absent: Pedal Edema - Neurological Exam Neurological Exam: Alert, Awake, Oriented x3 - Psychiatric Exam Psychiatric exam: Normal Affect, Normal Mood - Skin Skin Exam: Normal Color, Warm Assessment and Plan - Assessment and Plan (Free Text) Assessment: Acute Pancreatitis: Lipase - 3104, improving Amylase - 1408 AST/ALT: 220/202 today, imrproving T. bili - 0.6, improving Alk phos - 123, improving MRCP - cholelithiasis, no choledocholithiasis As per GI, Dr. Gomez, pt will benefit from laparoscopic cholecystectomy while inpatient once LFTs and lipase stabilize, due to recent onset of symptoms General Surgery, Dr. Gerard, consulted. Help appreciated. Abd/pelvis CT - findings consistent with acute pancreatitis, common bile duct 9.5 mm, gallbladder distended without calcified stones (please see full report) Abdominal ultrasound - multiple gallstones without evidence of cholecystitis, upper normal proximal size of CBD, possibility of small stone in CBD not totally excluded (please see full report) Trend LFTS and Lipase, as per GI and Surgery Possible cholecystectomy once LFTs and Lipase stabilize as per surgery Hepatitis panel: Hep Bs ab positive Zosyn 3.375 gm IV q8h NS IVF 150 cc/hr Morphine 3 mg IV q3h prn for pain Zofran 4 mg Iv q6h prn for nausea NPO diet Transaminitis: Like secondary to passing of CBD stone Afebrile, nontachycardic No leukocytosis AST/ALT: 220/202 today, improving T. bili - 0.6, improving Alk phos - 123, improving GI, Dr. Gomez, consulted. Help appreciated. General Surgery, Dr. Gerard, consulted. Help appreciated. Abd/pelvis CT - findings consistent with acute pancreatitis, common bile duct 9.5 mm, gallbladder distended without calcified stones (please see full report) Abdominal ultrasound - multiple gallstones without evidence of cholecystitis, upper normal proximal size of CBD, possibility of small stone in CBD not totally excluded (please see full report) Trend LFTS and Lipase, as per GI and Surgery Hepatitis panel: Hep Bs ab positive Possible cholecystectomy once LFTs and Lipase stabilize as per surgery NPO diet Hypokalemia: K+ 3.3 today KCL IV 10 meq x 3 Diabetes Mellitus: Insulin sliding scale Accuchecks achs Prophylactic Measures: GI: Protonix 40 mg Iv qd DVT: SCDs <Mateo Bee H - Last Filed: 11/15/16 17:22> Objective - Vital Signs/Intake and Output Vital Signs (last 24 hours): Temp Pulse Resp BP Pulse Ox 99.1 F 78 20 118/70 95 11/15/16 16:00 11/15/16 16:00 11/15/16 16:00 11/15/16 16:00 11/15/16 16:00 Intake and Output: 11/15/16 11/15/16 06:59 18:59 Intake Total 1000 1300 Balance 1000 1300 - Medications Medications: Current Medications Piperacillin Sod/Tazobactam (Sod 3.375 gm/ Sodium Chloride) 100 mls @ 200 mls/ hr IVPB Q8H [facility] Last Admin: 11/15/16 11:59 Dose: 200 mls/hr Dextrose/Sodium Chloride (Dextrose 5%/0.45% Ns 1000 Ml) 1,000 mls @ 150 mls/hr IV .Q6H40M [facility] Insulin Human Regular (Novolin R) 0 unit SC ACHS [facility] PRN Reason: Protocol Last Admin: 11/15/16 11:40 Dose: Not Given Morphine Sulfate (Morphine) 3 mg IVP Q3 PRN PRN Reason: Pain, moderate (4-7) Ondansetron HCl (Zofran Inj) 4 mg IVP Q6H PRN PRN Reason: Nausea/Vomiting Pantoprazole Sodium (Protonix Inj) 40 mg IVP DAILY [facility] Last Admin: 11/15/16 11:02 Dose: 40 mg Pneumococcal Polyvalent Vaccine (Pneumovax 23 Vaccine) 0.5 ml IM .ONCE ONE Stop: 11/16/16 10:01 - Labs Labs: 11/15/16 06:57 11/15/16 06:57 Attending/Attestation - Attestation I have personally seen and examined this patient.: Yes I have fully participated in the care of the patient.: Yes I have reviewed all pertinent clinical information, including history, physical exam and plan: Yes Notes (Text): Medical attending: Patient was seen and examined by me, agree with the above note by outside medical sales representative. The patient's lipase as well as transaminitis have decreased. Lipase is down to 3,000 from 36,000. The patient explains that she has a lot less pain now. Family members were present and we explained to them that probably she's passed the stone at this time. She still can be nothing by mouth, from what I understand she had MRCP done earlier in the day, So at some point whether it's inpatient during this admission or follow-up surgical removal of the gallbladder. In the meantime she remains nothing by mouth, intravenous fluids. Thank you very much, Mateo Bee
[2016-11-15] MEDS: Dextrose 5%/0.45% NS 1,000 ML IV SCH ×2 (17:00→23:52)
[2016-11-16] MEDS: Piperacillin/Tazobact 3.375 GM in Sodium Chloride 100 ML IVPB SCH ×3 (03:32→18:51)
[2016-11-16] MEDS: Dextrose 5%/0.45% NS 1,000 ML IV SCH ×5 (06:35→21:45)
[2016-11-16 07:34] LABS: BASO % 0.3 % (0.0-2.0); EOS # 0.2 K/uL (0.0-0.7); EOS % 2.9 % (0.0-4.0); HEMATOCRIT 26.8 % (34.0-47.0); LYMPH # 1.8 K/uL (1.0-4.3); LYMPH % 22.3 % (20.0-40.0); MEAN CELL VOLUME 80.6 fL (81.0-99.0); MEAN CORPUSCULAR HEMOGLOBIN 26.5 pg (27.0-31.0); MEAN CORPUSCULAR HGB CONC 32.8 g/dL (33.0-37.0); MEAN PLATELET VOLUME 10.4 fL (7.2-11.7); MONO # 0.6 K/uL (0.0-0.8); MONO % 6.8 % (0.0-10.0); NRBC % 0.1 % (0.0-2.0); RED CELL DISTRIBUTION WIDTH 14.4 % (11.5-14.5); WHITE BLOOD COUNT 8.1 K/uL (4.8-10.8)
[2016-11-16 07:41] LABS: CHLORIDE 108 mmol/L (98-107); SODIUM 140 mmol/L (132-148)
[2016-11-16 07:43] LABS: AST/SGOT 95 U/L (14-36); BILIRUBIN,TOTAL 0.6 mg/dL (0.2-1.3); CARBON DIOXIDE 26 mmol/L (22-30); GFR AFRICAN-AMERICAN > 60
[2016-11-16 07:44] LABS: ALKALINE PHOSPHATASE 96 U/L (38-126); ALT/SGPT 123 U/L (9-52); BLOOD UREA NITROGEN 5 mg/dL (7-17); GLUCOSE,RANDOM 143 mg/dL (65-105); MAGNESIUM 1.9 mg/dL (1.6-2.3); PHOSPHOROUS 2.5 mg/dL (2.5-4.5); TOTAL PROTEIN 5.8 g/dL (6.3-8.3)
[2016-11-16] MEDS: (Novolin R) Insulin Human Regular 100 units/ml vial SC SCH ×4 (08:10→21:46)
[2016-11-16] MEDS: Potassium Chloride 20 mEq 100 ML IVPB SCH ×3 (08:50→12:50)
[2016-11-16] MEDS ORDERED: Potassium Chloride 20 mEq 100 ML IVPB ONE (09:33)
[2016-11-16] MEDS ORDERED: Pneumococcal 23-Valent Vaccine IM ONE (10:00)
--- NOTE | 2016-11-16 13:20 | CP.PCM.PN ---
<Kunal Duff - Last Filed: 11/16/16 13:55> Subjective - Date & Time of Evaluation Date of Evaluation: 11/16/16 Time of Evaluation: 07:34 - Subjective Subjective: Pt seen and examined. Pt reports that her abdominal pain is much improved. Pt reports her nausea and vomiting have resolved. Pt denies fever, chills, chest pain, shortness of breath, constipation, diarrhea. Objective - Vital Signs/Intake and Output Vital Signs (last 24 hours): Temp Pulse Resp BP Pulse Ox 98.5 F 81 20 132/74 95 11/16/16 07:00 11/16/16 07:00 11/16/16 07:00 11/16/16 07:00 11/16/16 07:00 Intake and Output: 11/16/16 11/16/16 06:59 18:59 Intake Total 1200 Balance 1200 - Medications Medications: Current Medications Piperacillin Sod/Tazobactam (Sod 3.375 gm/ Sodium Chloride) 100 mls @ 200 mls/ hr IVPB Q8H [facility] Last Admin: 11/16/16 03:32 Dose: 200 mls/hr Dextrose/Sodium Chloride (Dextrose 5%/0.45% Ns 1000 Ml) 1,000 mls @ 150 mls/hr IV .Q6H40M [facility] Last Admin: 11/16/16 12:54 Dose: Not Given Potassium Chloride (Potassium Chloride 20 Meq/100 Ml) 100 mls @ 50 mls/hr IVPB Q2H [facility] Stop: 11/16/16 14:29 Last Admin: 11/16/16 12:50 Dose: 50 mls/hr Insulin Human Regular (Novolin R) 0 unit SC ACHS [facility] PRN Reason: Protocol Last Admin: 11/16/16 11:39 Dose: Not Given Morphine Sulfate (Morphine) 3 mg IVP Q3 PRN PRN Reason: Pain, moderate (4-7) Ondansetron HCl (Zofran Inj) 4 mg IVP Q6H PRN PRN Reason: Nausea/Vomiting Pantoprazole Sodium (Protonix Inj) 40 mg IVP DAILY [facility] Last Admin: 11/16/16 10:08 Dose: 40 mg - Labs Labs: 11/16/16 07:19 11/16/16 07:19 - Constitutional Appears: No Acute Distress - Head Exam Head Exam: ATRAUMATIC, NORMOCEPHALIC - Eye Exam Eye Exam: EOMI, PERRL - ENT Exam ENT Exam: Mucous Membranes Moist. absent: Mucous Membranes Dry - Neck Exam Neck Exam: Full ROM. absent: Lymphadenopathy - Respiratory Exam Respiratory Exam: Clear to Ausculation Bilateral. absent: Rales, Rhonchi, Wheezes - Cardiovascular Exam Cardiovascular Exam: +S1, +S2. absent: Gallop, Rubs - GI/Abdominal Exam GI & Abdominal Exam: Soft, Tenderness. absent: Distended, Guarding Additional comments: Abdominal tenderness improved - Neurological Exam Neurological Exam: Alert, Awake, Oriented x3 - Psychiatric Exam Psychiatric exam: Normal Affect, Normal Mood - Skin Skin Exam: Normal Color, Warm Assessment and Plan - Assessment and Plan (Free Text) Assessment: Acute Pancreatitis: Lipase - 492, improving Amylase - 1408 AST/ALT: 95/123 today, imrproving T. bili - 0.6 Alk phos - 96, improving MRCP - cholelithiasis, no choledocholithiasis(please see full report) As per GI, Dr. Gomez, pt will benefit from laparoscopic cholecystectomy while inpatient once LFTs and lipase stabilize, due to recent onset of symptoms General Surgery, Dr. Gerard, consulted. Help appreciated. Abd/pelvis CT - findings consistent with acute pancreatitis, common bile duct 9.5 mm, gallbladder distended without calcified stones (please see full report) Abdominal ultrasound - multiple gallstones without evidence of cholecystitis, upper normal proximal size of CBD, possibility of small stone in CBD not totally excluded (please see full report) Trend LFTS and Lipase, as per GI and Surgery Possible cholecystectomy once LFTs and Lipase stabilize as per surgery Hepatitis panel: Hep Bs ab positive, Hep A positive, Hep C negative Zosyn 3.375 gm IV q8h NS IVF 150 cc/hr Morphine 3 mg IV q3h prn for pain Zofran 4 mg Iv q6h prn for nausea NPO diet Cholecystits: Abd/pelvis CT - findings consistent with acute pancreatitis, common bile duct 9.5 mm, gallbladder distended without calcified stones (please see full report) Abdominal ultrasound - multiple gallstones without evidence of cholecystitis, upper normal proximal size of CBD, possibility of small stone in CBD not totally excluded (please see full report) MRCP - cholelithiasis, no choledocholithiasis (please see full report) Pt to OR today for laparoscopic cholecystectomy with Dr. Gerard Zosyn 3.375 gm IV q8h Transaminitis: Lipase - 492, improving Amylase - 1408 AST/ALT: 95/123 today, imrproving T. bili - 0.6 Alk phos - 96, improving GI, Dr. Gomez, consulted. Help appreciated. General Surgery, Dr. Gerard, consulted. Help appreciated. Abd/pelvis CT - findings consistent with acute pancreatitis, common bile duct 9.5 mm, gallbladder distended without calcified stones (please see full report) Abdominal ultrasound - multiple gallstones without evidence of cholecystitis, upper normal proximal size of CBD, possibility of small stone in CBD not totally excluded (please see full report) Trend LFTS and Lipase, as per GI and Surgery Hepatitis panel: Hep Bs ab positive Possible cholecystectomy once LFTs and Lipase stabilize as per surgery NPO diet Hypokalemia: K+ 3.0 today KCL IV 20 meq x 3 Diabetes Mellitus: Insulin sliding scale Accuchecks achs Prophylactic Measures: GI: Protonix 40 mg Iv qd DVT: SCDs <Mateo Bee H - Last Filed: 11/16/16 17:12> Objective - Vital Signs/Intake and Output Vital Signs (last 24 hours): Temp Pulse Resp BP Pulse Ox 99.2 F 77 20 115/76 95 11/16/16 15:00 11/16/16 15:00 11/16/16 15:00 11/16/16 15:00 11/16/16 15:00 Intake and Output: 11/16/16 11/16/16 06:59 18:59 Intake Total 2600 Balance 2600 - Medications Medications: Current Medications Piperacillin Sod/Tazobactam (Sod 3.375 gm/ Sodium Chloride) 100 mls @ 200 mls/ hr IVPB Q8H [facility] Last Admin: 11/16/16 13:27 Dose: Not Given Dextrose/Sodium Chloride (Dextrose 5%/0.45% Ns 1000 Ml) 1,000 mls @ 150 mls/hr IV .Q6H40M [facility] Last Admin: 11/16/16 14:26 Dose: 150 mls/hr Insulin Human Regular (Novolin R) 0 unit SC ACHS [facility] PRN Reason: Protocol Last Admin: 11/16/16 11:39 Dose: Not Given Morphine Sulfate (Morphine) 3 mg IVP Q3 PRN PRN Reason: Pain, moderate (4-7) Ondansetron HCl (Zofran Inj) 4 mg IVP Q6H PRN PRN Reason: Nausea/Vomiting Pantoprazole Sodium (Protonix Inj) 40 mg IVP DAILY [facility] Last Admin: 11/16/16 10:08 Dose: 40 mg - Labs Labs: 11/16/16 07:19 11/16/16 07:19 Attending/Attestation - Attestation I have personally seen and examined this patient.: Yes I have fully participated in the care of the patient.: Yes I have reviewed all pertinent clinical information, including history, physical exam and plan: Yes Notes (Text): 11/16/16 17:10 Medical Attending: Patient was seen and examined by me. Agree with the above note by the resident. The patient's Lipase, LFTs are both down trending this morning when we saw her. She is NPO and later will be having cholesectomy done. She was not in any pain or distress when we saw her. K was being replaced as well thank you Mateo Bee
[2016-11-17] MEDS: Dextrose 5%/0.45% NS 1,000 ML IV SCH ×2 (02:35→05:25)
[2016-11-17 03:13] LABS: HAV AB (IGM) Nonreactive (Nonreactive)
[2016-11-17] MEDS: Piperacillin/Tazobact 3.375 GM in Sodium Chloride 100 ML IVPB SCH ×3 (03:15→19:23)
[2016-11-17 07:21] LABS: INR 1.2
[2016-11-17 07:23] LABS: BASO % 0.5 % (0.0-2.0); EOS # 0.5 K/uL (0.0-0.7); EOS % 5.6 % (0.0-4.0); HEMATOCRIT 30.5 % (34.0-47.0); LYMPH # 2.6 K/uL (1.0-4.3); LYMPH % 30.5 % (20.0-40.0); MEAN CELL VOLUME 81.1 fL (81.0-99.0); MEAN CORPUSCULAR HEMOGLOBIN 26.2 pg (27.0-31.0); MEAN CORPUSCULAR HGB CONC 32.4 g/dL (33.0-37.0); MEAN PLATELET VOLUME 10.3 fL (7.2-11.7); MONO # 0.6 K/uL (0.0-0.8); MONO % 6.6 % (0.0-10.0); RED CELL DISTRIBUTION WIDTH 14.7 % (11.5-14.5); WHITE BLOOD COUNT 8.4 K/uL (4.8-10.8)
[2016-11-17 07:33] LABS: CHLORIDE 107 mmol/L (98-107); POTASSIUM 3.5 mmol/L (3.6-5.2); SODIUM 140 mmol/L (132-148)
[2016-11-17 07:35] LABS: ALKALINE PHOSPHATASE 102 U/L (38-126); ALT/SGPT 99 U/L (9-52); AST/SGOT 58 U/L (14-36); BILIRUBIN,TOTAL 0.8 mg/dL (0.2-1.3); BLOOD UREA NITROGEN 3 mg/dL (7-17); CARBON DIOXIDE 23 mmol/L (22-30); GFR AFRICAN-AMERICAN > 60; TOTAL PROTEIN 6.9 g/dL (6.3-8.3)
[2016-11-17 07:36] LABS: CALCIUM 8.6 mg/dl (8.6-10.4); GLUCOSE,RANDOM 121 mg/dL (65-105); MAGNESIUM 1.8 mg/dL (1.6-2.3); PHOSPHOROUS 2.9 mg/dL (2.5-4.5)
[2016-11-17] MEDS ORDERED: Potassium Chloride 20 mEq 100 ML IVPB ONE (07:45)
[2016-11-17] MEDS: (Novolin R) Insulin Human Regular 100 units/ml vial SC SCH ×4 (08:35→21:58)
[2016-11-17] MEDS ORDERED: Lactated Ringer's 1,000 ML IV ONE ×3 (11:50→14:25)
[2016-11-17] MEDS: Bupivacaine HCl 0.25% PF (10 ml) Inj ONE ×2 (11:55→12:50)
[2016-11-17] MEDS ORDERED: Midazolam 2 MG/2 ML VIAL ONE (12:18)
[2016-11-17] MEDS ORDERED: Succinylcholine Chloride 20 mg/ml Syr (5 ml) IV ONE (12:18)
[2016-11-17] MEDS ORDERED: Propofol 10 mg/ml Inj (20 ML) ONE (12:18)
[2016-11-17] MEDS ORDERED: Neostigmine Methylsulfate 3mg/3ml Syringe IV ONE (13:37)
--- NOTE | 2016-11-17 14:05 | PCM.SURG1 ---
Surgeon's Initial Post Op Note - Surgeon's Notes Surgeon: Dr. Gerard Family Physician: Dr. Dumont PGY1, Josiane MERANA Type of Anesthesia: General Endo Pre-Operative Diagnosis: cholelithiasis Operative Findings: see dictation Post-Operative Diagnosis: same Operation Performed: laparoscopic cholecystectomy Specimen/Specimens Removed: gallbladder Estimated Blood Loss: EBL {In ML}: 20 Blood Products Given: N/A Drains Used: No Drains Post-Op Condition: Good Date of Surgery/Procedure: 11/17/16 Time of Surgery/Procedure: 12:15
[2016-11-17] MEDS ORDERED: HYDROmorphone 0.5 mg/0.5 ml ISec IVP PRN (14:12)
[2016-11-17] MEDS: HYDROmorphone 0.5 mg/0.5 ml ISec ONE ×2 (14:17→14:52)
--- NOTE | 2016-11-17 16:11 | CP.PCM.PN ---
<Kunal Duff - Last Filed: 11/17/16 16:08> Subjective - Date & Time of Evaluation Date of Evaluation: 11/17/16 Time of Evaluation: 07:23 - Subjective Subjective: Pt seen and examined. No acute events overnight reported. Pt reports that she is feeling well. Pt denies fever, chills, chest pain, abdominal pain, nausea, vomiting, diarrhea. Objective - Vital Signs/Intake and Output Vital Signs (last 24 hours): Temp Pulse Resp BP Pulse Ox 97.5 F L 70 20 107/62 96 11/17/16 07:32 11/17/16 07:32 11/17/16 07:32 11/17/16 07:32 11/17/16 07:32 Intake and Output: 11/17/16 11/17/16 06:59 18:59 Intake Total 2350 1200 Balance 2350 1200 - Medications Medications: Current Medications Hydromorphone HCl (Dilaudid) 0.5 mg IVP Q15M PRN PRN Reason: Pain, severe (8-10) Stop: 11/17/16 16:13 Piperacillin Sod/Tazobactam (Sod 3.375 gm/ Sodium Chloride) 100 mls @ 200 mls/ hr IVPB Q8H [facility] Last Admin: 11/17/16 10:42 Dose: 200 mls/hr Dextrose/Sodium Chloride (Dextrose 5%/0.45% Ns 1000 Ml) 1,000 mls @ 150 mls/hr IV .Q6H40M [facility] Last Admin: 11/17/16 05:25 Dose: 150 mls/hr Insulin Human Regular (Novolin R) 0 unit SC ACHS [facility] PRN Reason: Protocol Last Admin: 11/17/16 11:15 Dose: Not Given Ondansetron HCl (Zofran Inj) 4 mg IVP Q4 PRN PRN Reason: Nausea/Vomiting Last Admin: 11/17/16 15:20 Dose: 4 mg Oxycodone/Acetaminophen (Percocet 5/325 Mg Tab) 1 tab PO Q4H PRN PRN Reason: Pain, moderate (4-7) Stop: 11/20/16 14:04 Pantoprazole Sodium (Protonix Inj) 40 mg IVP DAILY [facility] Last Admin: 11/17/16 10:20 Dose: 40 mg - Labs Labs: 11/17/16 07:02 11/17/16 07:02 PT 13.3 SECONDS (9.7-12.2) H 11/17/16 07:02 INR 1.2 11/17/16 07:02 APTT 27 SECONDS (21-34) 11/17/16 07:02 - Constitutional Appears: No Acute Distress - Head Exam Head Exam: ATRAUMATIC, NORMOCEPHALIC - Eye Exam Eye Exam: EOMI, PERRL - ENT Exam ENT Exam: Mucous Membranes Moist. absent: Mucous Membranes Dry - Neck Exam Neck Exam: Full ROM. absent: Lymphadenopathy - Respiratory Exam Respiratory Exam: Clear to Ausculation Bilateral. absent: Rales, Rhonchi, Wheezes - Cardiovascular Exam Cardiovascular Exam: +S1, +S2. absent: Gallop, Rubs - GI/Abdominal Exam GI & Abdominal Exam: Soft, Normal Bowel Sounds. absent: Distended, Tenderness - Extremities Exam Extremities Exam: Full ROM. absent: Pedal Edema - Neurological Exam Neurological Exam: Alert, Awake, Oriented x3 - Psychiatric Exam Psychiatric exam: Normal Affect, Normal Mood - Skin Skin Exam: Normal Color, Warm Assessment and Plan - Assessment and Plan (Free Text) Assessment: Acute Pancreatitis: Lipase - 492 Amylase - 1408 AST/ALT: 58/99 today, improving T. bili - 0.6 Alk phos - 96, improving MRCP - cholelithiasis, no choledocholithiasis(please see full report) As per GI, Dr. Gomez, pt will benefit from laparoscopic cholecystectomy while inpatient once LFTs and lipase stabilize, due to recent onset of symptoms General Surgery, Dr. Gerard, consulted. Help appreciated. Abd/pelvis CT - findings consistent with acute pancreatitis, common bile duct 9.5 mm, gallbladder distended without calcified stones (please see full report) Abdominal ultrasound - multiple gallstones without evidence of cholecystitis, upper normal proximal size of CBD, possibility of small stone in CBD not totally excluded (please see full report) Trend LFTS and Lipase, as per GI and Surgery Possible cholecystectomy once LFTs and Lipase stabilize as per surgery Hepatitis panel: Hep Bs ab positive, Hep A positive, Hep C negative Zosyn 3.375 gm IV q8h NS IVF 150 cc/hr Morphine 3 mg IV q3h prn for pain Zofran 4 mg Iv q6h prn for nausea Diet advanced to consistent carbohydrates as per rose Cholecystits: Pt day 0 s/p laparoscopic cholecystectomy Abd/pelvis CT - findings consistent with acute pancreatitis, common bile duct 9.5 mm, gallbladder distended without calcified stones (please see full report) Abdominal ultrasound - multiple gallstones without evidence of cholecystitis, upper normal proximal size of CBD, possibility of small stone in CBD not totally excluded (please see full report) MRCP - cholelithiasis, no choledocholithiasis (please see full report) Zosyn 3.375 gm IV q8h Transaminitis: Lipase - 492 Amylase - 1408 AST/ALT: 58/99 today, imrproving T. bili - 0.8 Alk phos - 102 GI, Dr. Gomez, consulted. Help appreciated. General Surgery, Dr. Gerard, consulted. Help appreciated. Abd/pelvis CT - findings consistent with acute pancreatitis, common bile duct 9.5 mm, gallbladder distended without calcified stones (please see full report) Abdominal ultrasound - multiple gallstones without evidence of cholecystitis, upper normal proximal size of CBD, possibility of small stone in CBD not totally excluded (please see full report) Trend LFTS and Lipase, as per GI and Surgery Hepatitis panel: Hep Bs ab positive Possible cholecystectomy once LFTs and Lipase stabilize as per surgery NPO diet Hypokalemia: K+ 3.5 today KCL IV 20 meq x 1 Diabetes Mellitus: Insulin sliding scale Accuchecks achs Prophylactic Measures: GI: Protonix 40 mg Iv qd DVT: SCDs <BeeMateo bejarano H - Last Filed: 11/17/16 17:06> Objective - Vital Signs/Intake and Output Vital Signs (last 24 hours): Temp Pulse Resp BP Pulse Ox 97.5 F L 70 20 107/62 96 11/17/16 07:32 11/17/16 07:32 11/17/16 07:32 11/17/16 07:32 11/17/16 07:32 Intake and Output: 11/17/16 11/17/16 06:59 18:59 Intake Total 2350 1200 Balance 2350 1200 - Medications Medications: Current Medications Piperacillin Sod/Tazobactam (Sod 3.375 gm/ Sodium Chloride) 100 mls @ 200 mls/ hr IVPB Q8H [facility] Last Admin: 11/17/16 10:42 Dose: 200 mls/hr Dextrose/Sodium Chloride (Dextrose 5%/0.45% Ns 1000 Ml) 1,000 mls @ 150 mls/hr IV .Q6H40M [facility] Last Admin: 11/17/16 05:25 Dose: 150 mls/hr Insulin Human Regular (Novolin R) 0 unit SC ACHS [facility] PRN Reason: Protocol Last Admin: 11/17/16 11:15 Dose: Not Given Ondansetron HCl (Zofran Inj) 4 mg IVP Q4 PRN PRN Reason: Nausea/Vomiting Last Admin: 11/17/16 15:20 Dose: 4 mg Oxycodone/Acetaminophen (Percocet 5/325 Mg Tab) 1 tab PO Q4H PRN PRN Reason: Pain, moderate (4-7) Stop: 11/20/16 14:04 Pantoprazole Sodium (Protonix Inj) 40 mg IVP DAILY [facility] Last Admin: 11/17/16 10:20 Dose: 40 mg - Labs Labs: 11/17/16 07:02 11/17/16 07:02 PT 13.3 SECONDS (9.7-12.2) H 11/17/16 07:02 INR 1.2 11/17/16 07:02 APTT 27 SECONDS (21-34) 11/17/16 07:02 Attending/Attestation - Attestation I have personally seen and examined this patient.: Yes I have fully participated in the care of the patient.: Yes I have reviewed all pertinent clinical information, including history, physical exam and plan: Yes Notes (Text): Medical attending: Patient was seen and examined by me, agree the above note by lead medical technologist. Family members were present as well, we saw the patient in the morning and at that time the patient was pending going to the OR. When we saw her in the morning she looked very well, she was not in any acute distress. Her lab work was stable, both of her AST and ALT are stable as well. She was nothing by mouth Thank you very much, Mateo Bee
[2016-11-18] MEDS: Oxycodone/Acetaminophen 5/325 mg Tab PO PRN ×3 (00:30→19:28)
[2016-11-18] MEDS: Piperacillin/Tazobact 3.375 GM in Sodium Chloride 100 ML IVPB SCH ×3 (03:15→19:18)
[2016-11-18 08:32] LABS: BASO % 0.2 % (0.0-2.0); EOS # 0.2 K/uL (0.0-0.7); EOS % 3.6 % (0.0-4.0); LYMPH # 1.7 K/uL (1.0-4.3); LYMPH % 29.2 % (20.0-40.0); MEAN CELL VOLUME 80.6 fL (81.0-99.0); MEAN CORPUSCULAR HEMOGLOBIN 26.2 pg (27.0-31.0); MEAN CORPUSCULAR HGB CONC 32.5 g/dL (33.0-37.0); MEAN PLATELET VOLUME 10.1 fL (7.2-11.7); MONO # 0.4 K/uL (0.0-0.8); MONO % 7.8 % (0.0-10.0); RED CELL DISTRIBUTION WIDTH 14.5 % (11.5-14.5); WHITE BLOOD COUNT 5.7 K/uL (4.8-10.8)
[2016-11-18] MEDS: (Novolin R) Insulin Human Regular 100 units/ml vial SC SCH ×4 (08:38→21:58)
[2016-11-18 09:21] LABS: CHLORIDE 105 mmol/L (98-107); SODIUM 140 mmol/L (132-148)
[2016-11-18 09:22] LABS: POTASSIUM 3.3 mmol/L (3.6-5.2)
[2016-11-18 09:23] LABS: GFR AFRICAN-AMERICAN > 60
[2016-11-18 09:24] LABS: ALKALINE PHOSPHATASE 86 U/L (38-126); ALT/SGPT 88 U/L (9-52); AST/SGOT 85 U/L (14-36); BILIRUBIN,TOTAL 0.4 mg/dL (0.2-1.3); BLOOD UREA NITROGEN 4 mg/dL (7-17); CARBON DIOXIDE 24 mmol/L (22-30); GLUCOSE,RANDOM 84 mg/dL (65-105); PHOSPHOROUS 3.9 mg/dL (2.5-4.5); TOTAL PROTEIN 6.1 g/dL (6.3-8.3)
[2016-11-18 09:25] LABS: CALCIUM 8.3 mg/dl (8.6-10.4); MAGNESIUM 1.7 mg/dL (1.6-2.3)
--- NOTE | 2016-11-18 10:35 | CP.PCM.PN ---
<JuliaJessie - Last Filed: 11/18/16 10:32> Subjective - Date & Time of Evaluation Date of Evaluation: 11/18/16 Time of Evaluation: 07:15 - Subjective Subjective: General Surgery Dr. Gerard Pt S&E @bedside. pt had lap jing yesterday. pt tolerated procedure well w/ no complications. NAEO. pain well controlled. denies N/V, F/C. (+) Flatus. (-) BM. tolerating regular diet. Objective - Vital Signs/Intake and Output Vital Signs (last 24 hours): Temp Pulse Resp BP Pulse Ox 98.7 F 59 L 20 134/78 98 11/18/16 08:09 11/18/16 08:09 11/18/16 08:09 11/18/16 08:09 11/18/16 08:09 Intake and Output: 11/18/16 11/18/16 06:59 18:59 Intake Total 300 Balance 300 - Medications Medications: Current Medications Piperacillin Sod/Tazobactam (Sod 3.375 gm/ Sodium Chloride) 100 mls @ 200 mls/ hr IVPB Q8H [facility] Last Admin: 11/18/16 03:15 Dose: 200 mls/hr Insulin Human Regular (Novolin R) 0 unit SC ACHS [facility] PRN Reason: Protocol Last Admin: 11/18/16 08:38 Dose: Not Given Ondansetron HCl (Zofran Inj) 4 mg IVP Q4 PRN PRN Reason: Nausea/Vomiting Last Admin: 11/17/16 15:20 Dose: 4 mg Oxycodone/Acetaminophen (Percocet 5/325 Mg Tab) 1 tab PO Q4H PRN PRN Reason: Pain, moderate (4-7) Stop: 11/20/16 14:04 Last Admin: 11/18/16 00:30 Dose: 1 tab Pantoprazole Sodium (Protonix Inj) 40 mg IVP DAILY [facility] Last Admin: 11/17/16 10:20 Dose: 40 mg Potassium Chloride (K-Dur 20 Meq Er Tab) 40 meq PO DAILY [facility] - Labs Labs: 11/18/16 08:19 11/18/16 08:19 PT 13.3 SECONDS (9.7-12.2) H 11/17/16 07:02 INR 1.2 11/17/16 07:02 APTT 27 SECONDS (21-34) 11/17/16 07:02 - Constitutional Appears: Non-toxic, No Acute Distress - Head Exam Head Exam: NORMAL INSPECTION - Eye Exam Eye Exam: Normal appearance - ENT Exam ENT Exam: Mucous Membranes Moist - Respiratory Exam Respiratory Exam: NORMAL BREATHING PATTERN. absent: Accessory Muscle Use, Respiratory Distress - GI/Abdominal Exam GI & Abdominal Exam: Soft. absent: Distended, Guarding, Tenderness Additional comments: dressings C/D/I - Neurological Exam Neurological Exam: Alert, Awake, Oriented x3 - Psychiatric Exam Psychiatric exam: Normal Affect, Normal Mood - Skin Skin Exam: Dry, Intact, Normal Color, Warm Assessment and Plan - Assessment and Plan (Free Text) Assessment: 61 y/o F POD#1 s/p Laparoscopic cholecystectomy. - regular diet - cont PO pain management - cleared for D/C from surgical standpoint - pt to follow up in clinic in 1-2weeks Pt discussed w/ Dr. Rajani Dumont DO PGY1 <Lester Gerard - Last Filed: 11/20/16 10:30> Objective - Vital Signs/Intake and Output Vital Signs (last 24 hours): Temp Pulse Resp BP Pulse Ox 99.5 F 81 20 137/75 92 L 11/19/16 07:40 11/19/16 08:00 11/19/16 07:40 11/19/16 07:40 11/19/16 07:40 - Labs Labs: 11/18/16 08:19 11/18/16 08:19 PT 13.3 SECONDS (9.7-12.2) H 11/17/16 07:02 INR 1.2 11/17/16 07:02 APTT 27 SECONDS (21-34) 11/17/16 07:02 Attending/Attestation - Attestation I have personally seen and examined this patient.: Yes I have fully participated in the care of the patient.: Yes I have reviewed all pertinent clinical information, including history, physical exam and plan: Yes Notes (Text): 11/20/16 10:30 Pt was seen and examined at bedside on 11/18/16 Agree with above note and assessment
[2016-11-18] MEDS: Potassium Chloride 20 mEq ER Tab PO SCH (11:37)
--- NOTE | 2016-11-18 22:53 | CP.PCM.PN ---
<Kunal Duff - Last Filed: 11/19/16 00:33> Subjective - Date & Time of Evaluation Date of Evaluation: 11/18/16 Time of Evaluation: 07:59 - Subjective Subjective: Pt seen and examined. Pt reports that she has some abdominal discomfort day 1 s/ p laparoscopic cholecystectomy. Pt erports that she is walking and tolerating her diet. Pt reports that she is passing gas but has not had a bowel movement. Pt denies fever, chills, chest pain, shortness of breath, nausea, and vomiting. Objective - Vital Signs/Intake and Output Vital Signs (last 24 hours): Temp Pulse Resp BP Pulse Ox 98.4 F 71 20 129/76 94 L 11/18/16 17:00 11/18/16 17:00 11/18/16 17:00 11/18/16 17:00 11/18/16 17:00 Intake and Output: 11/18/16 11/19/16 18:59 06:59 Intake Total 400 Balance 400 - Medications Medications: Current Medications Piperacillin Sod/Tazobactam (Sod 3.375 gm/ Sodium Chloride) 100 mls @ 200 mls/ hr IVPB Q8H [facility] Last Admin: 11/18/16 19:18 Dose: 200 mls/hr Insulin Human Regular (Novolin R) 0 unit SC ACHS [facility] PRN Reason: Protocol Last Admin: 11/18/16 21:58 Dose: Not Given Ondansetron HCl (Zofran Inj) 4 mg IVP Q4 PRN PRN Reason: Nausea/Vomiting Last Admin: 11/17/16 15:20 Dose: 4 mg Oxycodone/Acetaminophen (Percocet 5/325 Mg Tab) 1 tab PO Q4H PRN PRN Reason: Pain, moderate (4-7) Stop: 11/20/16 14:04 Last Admin: 11/18/16 19:28 Dose: 1 tab Pantoprazole Sodium (Protonix Inj) 40 mg IVP DAILY [facility] Last Admin: 11/18/16 11:37 Dose: 40 mg Potassium Chloride (K-Dur 20 Meq Er Tab) 40 meq PO DAILY [facility] Last Admin: 11/18/16 11:37 Dose: 40 meq - Labs Labs: 11/18/16 08:19 11/18/16 08:19 PT 13.3 SECONDS (9.7-12.2) H 11/17/16 07:02 INR 1.2 11/17/16 07:02 APTT 27 SECONDS (21-34) 11/17/16 07:02 - Constitutional Appears: No Acute Distress - Head Exam Head Exam: ATRAUMATIC, NORMOCEPHALIC - Eye Exam Eye Exam: EOMI, PERRL - ENT Exam ENT Exam: Mucous Membranes Moist. absent: Mucous Membranes Dry - Neck Exam Neck Exam: Full ROM. absent: Lymphadenopathy - Respiratory Exam Respiratory Exam: Clear to Ausculation Bilateral. absent: Rales, Rhonchi, Wheezes - Cardiovascular Exam Cardiovascular Exam: +S1, +S2. absent: Gallop, Rubs - GI/Abdominal Exam GI & Abdominal Exam: Soft, Tenderness, Hypoactive Bowel Sounds. absent: Distended, Guarding Additional comments: Wounds clean, dry, and intact, no drain in place - Extremities Exam Extremities Exam: Full ROM. absent: Pedal Edema - Neurological Exam Neurological Exam: Alert, Awake, Oriented x3 - Psychiatric Exam Psychiatric exam: Normal Affect, Normal Mood - Skin Skin Exam: Normal Color, Warm Assessment and Plan - Assessment and Plan (Free Text) Assessment: Acute Pancreatitis: Resolved Lipase - 492 Amylase - 1408 AST/ALT: 85/88 today T. bili - 0.4 Alk phos - 86 MRCP - cholelithiasis, no choledocholithiasis(please see full report) As per GI, Dr. Gomez, pt will benefit from laparoscopic cholecystectomy while inpatient once LFTs and lipase stabilize, due to recent onset of symptoms General Surgery, Dr. Gerard, consulted. Help appreciated. Abd/pelvis CT - findings consistent with acute pancreatitis, common bile duct 9.5 mm, gallbladder distended without calcified stones (please see full report) Abdominal ultrasound - multiple gallstones without evidence of cholecystitis, upper normal proximal size of CBD, possibility of small stone in CBD not totally excluded (please see full report) Trend LFTS and Lipase, as per GI and Surgery Possible cholecystectomy once LFTs and Lipase stabilize as per surgery Hepatitis panel: Hep Bs ab positive, Hep A positive, Hep C negative Zosyn 3.375 gm IV q8h NS IVF 150 cc/hr Morphine 3 mg IV q3h prn for pain Zofran 4 mg Iv q6h prn for nausea Diet advanced to consistent carbohydrates as per durgery Cholecystitis: Pt day 1 s/p laparoscopic cholecystectomy Pt afebrile, nontachycardic No leukocytosis Abd/pelvis CT - findings consistent with acute pancreatitis, common bile duct 9.5 mm, gallbladder distended without calcified stones (please see full report) Abdominal ultrasound - multiple gallstones without evidence of cholecystitis, upper normal proximal size of CBD, possibility of small stone in CBD not totally excluded (please see full report) MRCP - cholelithiasis, no choledocholithiasis (please see full report) Zosyn 3.375 gm IV q8h Transaminitis: Lipase - 492 Amylase - 1408 AST/ALT: 85/88 T. bili - 0.4 Alk phos - 86 GI, Dr. Gomez, consulted. Help appreciated. General Surgery, Dr. Gerard, consulted. Help appreciated. Abd/pelvis CT - findings consistent with acute pancreatitis, common bile duct 9.5 mm, gallbladder distended without calcified stones (please see full report) Abdominal ultrasound - multiple gallstones without evidence of cholecystitis, upper normal proximal size of CBD, possibility of small stone in CBD not totally excluded (please see full report) Trend LFTS and Lipase, as per GI and Surgery Hepatitis panel: Hep Bs ab positive Possible cholecystectomy once LFTs and Lipase stabilize as per surgery NPO diet Hypokalemia: K+ 3.3 today K-dur 40 meq po Diabetes Mellitus: Insulin sliding scale Accuchecks achs Prophylactic Measures: GI: Protonix 40 mg Iv qd DVT: SCDs <Mateo Bee H - Last Filed: 11/19/16 10:44> Objective - Vital Signs/Intake and Output Vital Signs (last 24 hours): Temp Pulse Resp BP Pulse Ox 99.5 F 81 20 137/75 92 L 11/19/16 07:40 11/19/16 07:40 11/19/16 07:40 11/19/16 07:40 11/19/16 07:40 Intake and Output: 11/19/16 11/19/16 06:59 18:59 Intake Total 300 Balance 300 - Medications Medications: Current Medications Piperacillin Sod/Tazobactam (Sod 3.375 gm/ Sodium Chloride) 100 mls @ 200 mls/ hr IVPB Q8H [facility] Last Admin: 11/19/16 03:30 Dose: 200 mls/hr Insulin Human Regular (Novolin R) 0 unit SC ACHS [facility] PRN Reason: Protocol Last Admin: 11/19/16 07:30 Dose: Not Given Ondansetron HCl (Zofran Inj) 4 mg IVP Q4 PRN PRN Reason: Nausea/Vomiting Last Admin: 11/17/16 15:20 Dose: 4 mg Oxycodone/Acetaminophen (Percocet 5/325 Mg Tab) 1 tab PO Q4H PRN PRN Reason: Pain, moderate (4-7) Stop: 11/20/16 14:04 Last Admin: 11/18/16 19:28 Dose: 1 tab Pantoprazole Sodium (Protonix Inj) 40 mg IVP DAILY [facility] Last Admin: 11/19/16 09:18 Dose: 40 mg Potassium Chloride (K-Dur 20 Meq Er Tab) 40 meq PO DAILY [facility] Last Admin: 11/19/16 09:18 Dose: 40 meq - Labs Labs: 11/18/16 08:19 11/18/16 08:19 PT 13.3 SECONDS (9.7-12.2) H 11/17/16 07:02 INR 1.2 11/17/16 07:02 APTT 27 SECONDS (21-34) 11/17/16 07:02 Attending/Attestation - Attestation I have personally seen and examined this patient.: Yes I have fully participated in the care of the patient.: Yes I have reviewed all pertinent clinical information, including history, physical exam and plan: Yes Notes (Text): 11/19/16 10:43 Medical Attending: Patient was seen and examined by me. She will be discharged later today. Will need pain medication. thank you Mateo Bee
[2016-11-19] MEDS: Piperacillin/Tazobact 3.375 GM in Sodium Chloride 100 ML IVPB SCH (03:30)
[2016-11-19] MEDS: (Novolin R) Insulin Human Regular 100 units/ml vial SC SCH (07:30)
[2016-11-19 07:42] VITALS: BP 137/75; PULSE 81; RESP 20; TEMP 99.5; O2SAT 92
[2016-11-19] MEDS: Potassium Chloride 20 mEq ER Tab PO SCH (09:18)
--- NOTE | 2016-11-19 09:55 | CP.PCM.DIS ---
<Ruddy Romero - Last Filed: 11/19/16 10:58> Provider - Provider Date of Admission: 11/14/16 05:12 Attending physician: Vega Tariq MD Primary care physician: No PCP Consults: GI: Gomez [facility] Time Spent in preparation of Discharge (in minutes): 45 Hospital Course - Lab Results Lab Results: Most Recent Lab Values WBC 5.7 K/uL (4.8-10.8) 11/18/16 08:19 RBC 3.22 Mil/uL (3.80-5.20) L 11/18/16 08:19 Hgb 8.4 g/dL (11.0-16.0) L 11/18/16 08:19 Hct 26.0 % (34.0-47.0) L 11/18/16 08:19 MCV 80.6 fL (81.0-99.0) L 11/18/16 08:19 MCH 26.2 pg (27.0-31.0) L 11/18/16 08:19 MCHC 32.5 g/dL (33.0-37.0) L 11/18/16 08:19 RDW 14.5 % (11.5-14.5) 11/18/16 08:19 Plt Count 151 K/uL (130-400) 11/18/16 08:19 MPV 10.1 fL (7.2-11.7) 11/18/16 08:19 Neut % (Auto) 59.2 % (50.0-75.0) 11/18/16 08:19 Lymph % (Auto) 29.2 % (20.0-40.0) 11/18/16 08:19 Stafford % (Auto) 7.8 % (0.0-10.0) 11/18/16 08:19 Eos % (Auto) 3.6 % (0.0-4.0) 11/18/16 08:19 Baso % (Auto) 0.2 % (0.0-2.0) 11/18/16 08:19 Neut # 3.4 K/uL (1.8-7.0) 11/18/16 08:19 Lymph # 1.7 K/uL (1.0-4.3) 11/18/16 08:19 Stafford # 0.4 K/uL (0.0-0.8) 11/18/16 08:19 Eos # 0.2 K/uL (0.0-0.7) 11/18/16 08:19 Baso # 0.0 K/uL (0.0-0.2) 11/18/16 08:19 PT 13.3 SECONDS (9.7-12.2) H 11/17/16 07:02 INR 1.2 11/17/16 07:02 APTT 27 SECONDS (21-34) 11/17/16 07:02 Sodium 140 mmol/L (132-148) 11/18/16 08:19 Potassium 3.3 mmol/L (3.6-5.2) L 11/18/16 08:19 Chloride 105 mmol/L (98-107) 11/18/16 08:19 Carbon Dioxide 24 mmol/L (22-30) 11/18/16 08:19 Anion Gap 14 (10-20) 11/18/16 08:19 BUN 4 mg/dL (7-17) L 11/18/16 08:19 Creatinine 0.7 MG/DL (0.7-1.2) 11/18/16 08:19 Est GFR ( Amer) > 60 11/18/16 08:19 Est GFR (Non-Af Amer) > 60 11/18/16 08:19 POC Glucose (mg/dL) 77 mg/dL (65-110) 11/19/16 07:01 Random Glucose 84 mg/dL (65-105) 11/18/16 08:19 Calcium 8.3 mg/dl (8.6-10.4) L 11/18/16 08:19 Phosphorus 3.9 mg/dL (2.5-4.5) 11/18/16 08:19 Magnesium 1.7 mg/dL (1.6-2.3) 11/18/16 08:19 Total Bilirubin 0.4 mg/dL (0.2-1.3) 11/18/16 08:19 Direct Bilirubin 0.4 mg/dL (0.0-0.4) 11/15/16 06:57 AST 85 U/L (14-36) H D 11/18/16 08:19 ALT 88 U/L (9-52) H 11/18/16 08:19 Alkaline Phosphatase 86 U/L (38-126) 11/18/16 08:19 Total Protein 6.1 g/dL (6.3-8.3) L 11/18/16 08:19 Albumin 3.1 g/dL (3.5-5.0) L 11/18/16 08:19 Globulin 3.0 gm/dL (2.2-3.9) 11/18/16 08:19 Albumin/Globulin Ratio 1.0 (1.0-2.1) 11/18/16 08:19 Triglycerides 51 mg/dL (0-149) 11/14/16 06:15 Cholesterol 211 mg/dL (0-199) H 11/14/16 06:15 LDL Cholesterol Direct 77 mg/dL (0-129) 11/14/16 06:15 HDL Cholesterol 89 mg/dL (30-70) H 11/14/16 06:15 Amylase 1408 U/L (30-110) H 11/15/16 06:57 Lipase 492 U/L (23-300) H 11/16/16 07:19 Urine Color Yellow (YELLOW) 11/14/16 03:23 Urine Clarity Clear (Clear) 11/14/16 03:23 Urine pH 7.0 (5.0-8.0) 11/14/16 03:23 Ur Specific Lengby 1.009 (1.003-1.030) 11/14/16 03:23 Urine Protein Negative mg/dL (NEGATIVE) 11/14/16 03:23 Urine Glucose (UA) 3+ mg/dL (Normal) H 11/14/16 03:23 Urine Ketones Trace mg/dL (NEGATIVE) 11/14/16 03:23 Urine Blood Negative (NEGATIVE) 11/14/16 03:23 Urine Nitrate Negative (NEGATIVE) 11/14/16 03:23 Urine Bilirubin Negative (NEGATIVE) 11/14/16 03:23 Urine Urobilinogen 4.0 mg/dL (0.2-1.0) H 11/14/16 03:23 Ur Leukocyte Esterase Trace Jose Manuel/uL (Negative) 11/14/16 03:23 Urine WBC (Auto) 1 /hpf (0-5) 11/14/16 03:23 Urine RBC (Auto) < 1 /hpf (0-3) 11/14/16 03:23 Ur Squamous Epith Cells 4 /hpf (0-5) 11/14/16 03:23 Urine Bacteria Rare (<OCC) 11/14/16 03:23 Alcohol, Quantitative < 10 mg/dl (0-10) 11/14/16 05:01 Hepatitis A IgM Ab Nonreactive (Nonreactive) 11/15/16 06:57 Hepatitis A Ab Total Reactive (Nonreactive) H 11/15/16 06:57 Hep Bs Antigen Negative (NEGATIVE) 11/15/16 06:57 Hep Bs Antibody Positive (NEGATIVE) 11/15/16 06:57 Hep B Core IgM Ab Negative (NEGATIVE) 11/15/16 06:57 Hepatitis C Antibody Negative (NEGATIVE) 11/15/16 06:57 - Hospital Course Hospital Course: Upon Admission: 61yo F with PMHx including HTN, DM, HLD, GERD, Pancreatitis here for evaluation of Abd pain, N/V. Pain started after she had a celebratory dinner with alcohol for her birthday. Sharp, epigastric pain. Found to have acute pancreatitis [place] [id number] upon admission. Also with Gallstones and elevated Transaminases. GI and surgery consults were obtained. Patient was aggressively hydrated and acute flare of pancreatits improved. MRCP performed, no evidence of choledocholithiasis. Patient was taken to the OR for Lap Marry on 11/17/16 and had an uncomplicated perioperative stay, able to tolerate diet, abd pain and n/v resolved. Patient's pain improved, and she was discharged on PO pain meds and instructed to f/u with Dr. Gerard in 1-2 weeks. Patient understands and agrees with plan. All questions answered. ETOH cessation recommended. 1. Acute Pancreatitis; Resolved; 2. Cholelithiasis; Lap Marry on 11/17/16. Percocet prn. 3. Hx of DM; Continue home meds 4. Hx of HLD; Continue home meds 5. Hx of HTN; Continue home meds Upon Discharge: Patient is cleared for discharge as per Dr. Bee 1. Follow up with Dr. Gerard in clinic in 1-2 weeks. Call for appointment 2. Follow up at [facility] to establish care. Call for appointment 3. You may shower. 4. Resume home meds 5. Take pain meds sparingly 6. Return to the ER with any concerning symptoms. New Prescriptions: Percocet 5/325mg PO q4h prn #20/0 Discharge Exam - Head Exam Head Exam: ATRAUMATIC, NORMOCEPHALIC - Eye Exam Eye Exam: EOMI, Normal appearance. absent: Scleral icterus - ENT Exam ENT Exam: Mucous Membranes Moist - Respiratory Exam Respiratory Exam: Clear to PA & Lateral, NORMAL BREATHING PATTERN, UNREMARKABLE. absent: Respiratory Distress - Cardiovascular Exam Cardiovascular Exam: REGULAR RHYTHM, RRR, +S1, +S2 - GI/Abdominal Exam GI & Abdominal Exam: Soft. absent: Distended, Guarding, Rebound, Rigid - Extremities Exam Extremities exam: normal inspection - Neurological Exam Neurological exam: Alert, Oriented x3 - Psychiatric Exam Psychiatric exam: Normal Affect, Normal Mood - Skin Skin Exam: Dry, Intact, Normal Color, Warm Discharge Plan - Discharge Medications Prescriptions: oxyCODONE/Acetaminophen [Percocet 5/325 mg Tab] 1 tab PO Q4H PRN #20 tab PRN Reason: Pain, Moderate (4-7) - Follow Up Plan Condition: GUARDED Disposition: HOME/ ROUTINE Instructions: Acute Abdominal Pain (DC), Acute Abdominal Pain (GEN) Additional Instructions: Patient is cleared for discharge as per Dr. Bee 1. Follow up with Dr. Gerard in clinic in 1-2 weeks. Call for appointment 2. Follow up at [facility] to establish care. Call for appointment 3. You may shower. 4. Resume home meds 5. Take pain meds sparingly 6. Return to the ER with any concerning symptoms. New Prescriptions: Percocet 5/325mg PO q4h prn #20/0 Referrals: Lester Gerard MD [Staff Provider] - [facility] [Outside] <Mateo Bee - Last Filed: 11/19/16 15:22> Provider - Provider Date of Admission: 11/14/16 05:12 Attending physician: Vega Tariq MD Hospital Course - Lab Results Lab Results: Most Recent Lab Values WBC 5.7 K/uL (4.8-10.8) 11/18/16 08:19 RBC 3.22 Mil/uL (3.80-5.20) L 11/18/16 08:19 Hgb 8.4 g/dL (11.0-16.0) L 11/18/16 08:19 Hct 26.0 % (34.0-47.0) L 11/18/16 08:19 MCV 80.6 fL (81.0-99.0) L 11/18/16 08:19 MCH 26.2 pg (27.0-31.0) L 11/18/16 08:19 MCHC 32.5 g/dL (33.0-37.0) L 11/18/16 08:19 RDW 14.5 % (11.5-14.5) 11/18/16 08:19 Plt Count 151 K/uL (130-400) 11/18/16 08:19 MPV 10.1 fL (7.2-11.7) 11/18/16 08:19 Neut % (Auto) 59.2 % (50.0-75.0) 11/18/16 08:19 Lymph % (Auto) 29.2 % (20.0-40.0) 11/18/16 08:19 Stafford % (Auto) 7.8 % (0.0-10.0) 11/18/16 08:19 Eos % (Auto) 3.6 % (0.0-4.0) 11/18/16 08:19 Baso % (Auto) 0.2 % (0.0-2.0) 11/18/16 08:19 Neut # 3.4 K/uL (1.8-7.0) 11/18/16 08:19 Lymph # 1.7 K/uL (1.0-4.3) 11/18/16 08:19 Stafford # 0.4 K/uL (0.0-0.8) 11/18/16 08:19 Eos # 0.2 K/uL (0.0-0.7) 11/18/16 08:19 Baso # 0.0 K/uL (0.0-0.2) 11/18/16 08:19 PT 13.3 SECONDS (9.7-12.2) H 11/17/16 07:02 INR 1.2 11/17/16 07:02 APTT 27 SECONDS (21-34) 11/17/16 07:02 Sodium 140 mmol/L (132-148) 11/18/16 08:19 Potassium 3.3 mmol/L (3.6-5.2) L 11/18/16 08:19 Chloride 105 mmol/L (98-107) 11/18/16 08:19 Carbon Dioxide 24 mmol/L (22-30) 11/18/16 08:19 Anion Gap 14 (10-20) 11/18/16 08:19 BUN 4 mg/dL (7-17) L 11/18/16 08:19 Creatinine 0.7 MG/DL (0.7-1.2) 11/18/16 08:19 Est GFR ( Amer) > 60 11/18/16 08:19 Est GFR (Non-Af Amer) > 60 11/18/16 08:19 POC Glucose (mg/dL) 77 mg/dL (65-110) 11/19/16 07:01 Random Glucose 84 mg/dL (65-105) 11/18/16 08:19 Calcium 8.3 mg/dl (8.6-10.4) L 11/18/16 08:19 Phosphorus 3.9 mg/dL (2.5-4.5) 11/18/16 08:19 Magnesium 1.7 mg/dL (1.6-2.3) 11/18/16 08:19 Total Bilirubin 0.4 mg/dL (0.2-1.3) 11/18/16 08:19 Direct Bilirubin 0.4 mg/dL (0.0-0.4) 11/15/16 06:57 AST 85 U/L (14-36) H D 11/18/16 08:19 ALT 88 U/L (9-52) H 11/18/16 08:19 Alkaline Phosphatase 86 U/L (38-126) 11/18/16 08:19 Total Protein 6.1 g/dL (6.3-8.3) L 11/18/16 08:19 Albumin 3.1 g/dL (3.5-5.0) L 11/18/16 08:19 Globulin 3.0 gm/dL (2.2-3.9) 11/18/16 08:19 Albumin/Globulin Ratio 1.0 (1.0-2.1) 11/18/16 08:19 Triglycerides 51 mg/dL (0-149) 11/14/16 06:15 Cholesterol 211 mg/dL (0-199) H 11/14/16 06:15 LDL Cholesterol Direct 77 mg/dL (0-129) 11/14/16 06:15 HDL Cholesterol 89 mg/dL (30-70) H 11/14/16 06:15 Amylase 1408 U/L (30-110) H 11/15/16 06:57 Lipase 492 U/L (23-300) H 11/16/16 07:19 Urine Color Yellow (YELLOW) 11/14/16 03:23 Urine Clarity Clear (Clear) 11/14/16 03:23 Urine pH 7.0 (5.0-8.0) 11/14/16 03:23 Ur Specific Lengby 1.009 (1.003-1.030) 11/14/16 03:23 Urine Protein Negative mg/dL (NEGATIVE) 11/14/16 03:23 Urine Glucose (UA) 3+ mg/dL (Normal) H 11/14/16 03:23 Urine Ketones Trace mg/dL (NEGATIVE) 11/14/16 03:23 Urine Blood Negative (NEGATIVE) 11/14/16 03:23 Urine Nitrate Negative (NEGATIVE) 11/14/16 03:23 Urine Bilirubin Negative (NEGATIVE) 11/14/16 03:23 Urine Urobilinogen 4.0 mg/dL (0.2-1.0) H 11/14/16 03:23 Ur Leukocyte Esterase Trace Jose Manuel/uL (Negative) 11/14/16 03:23 Urine WBC (Auto) 1 /hpf (0-5) 11/14/16 03:23 Urine RBC (Auto) < 1 /hpf (0-3) 11/14/16 03:23 Ur Squamous Epith Cells 4 /hpf (0-5) 11/14/16 03:23 Urine Bacteria Rare (<OCC) 11/14/16 03:23 Alcohol, Quantitative < 10 mg/dl (0-10) 11/14/16 05:01 Hepatitis A IgM Ab Nonreactive (Nonreactive) 11/15/16 06:57 Hepatitis A Ab Total Reactive (Nonreactive) H 11/15/16 06:57 Hep Bs Antigen Negative (NEGATIVE) 11/15/16 06:57 Hep Bs Antibody Positive (NEGATIVE) 11/15/16 06:57 Hep B Core IgM Ab Negative (NEGATIVE) 11/15/16 06:57 Hepatitis C Antibody Negative (NEGATIVE) 11/15/16 06:57 Attending/Attestation - Attestation I have personally seen and examined this patient.: Yes I have fully participated in the care of the patient.: Yes I have reviewed all pertinent clinical information, including history, physical exam and plan: Yes Notes (Text): 11/19/16 15:21 Medical attending: Agree with the above note by certified medical coder. The patient is status post cholecystectomy her pain was tolerable, she is ambulating on her own without assistance. At this time will discharge, Rx for pain medication as well. Encouraged ambulation The patient should follow-up at [facility] clinic. Thank you very much, Mateo Bee
--- NOTE | 2016-11-20 12:56 | OP ---
PROCEDURE DATE: 11/17/2016 PREOPERATIVE DIAGNOSES: 1. Chronic cholecystitis and cholelithiasis. 2. Gallstone pancreatitis 3. Possible postinfectious adhesions. POSTOPERATIVE DIAGNOSIS: 1. Chronic cholecystitis and cholelithiasis. 2. Gallstone pancreatitis 3. Extensive postinfectious adhesions. PROCEDURES DONE: 1. Laparoscopic cholecystectomy. 2. Laparoscopic extensive lysis of adhesions. SURGEON: Lester Gerard MD ASSISTANTS: Josiane Oliva and Jessie Dumont, PGY-1 resident. ANESTHESIA: General endotracheal tube anesthesia. ESTIMATED BLOOD LOSS: Around 10 mL. DRAINS: None. PATHOLOGY: Gallbladder with gallstone was sent for pathology. COMPLICATIONS: None. INTRAOPERATIVE FINDINGS: The patient had extensive postinfectious adhesion and patient has extremely thickened and edematous gallbladder as well as Calot's triangle and dilated cystic duct. INTRAOPERATIVE STEPS: This is a 61-year-old female who was diagnosed with gallstone pancreatitis wit h chronic cholecystitis and cholelithiasis and patient was consented for laparoscopic cholecystectomy , possible open. Brought to the OR, placed supine on the operating table. After induction of the an esthesia, abdomen was prepped and draped in a usual sterile fashion. Supraumbilical transverse 1.5 c m incision was made. After incising skin and subcutaneous tissue, the fascia was incised in the line of incision. Jyoti port was placed, pneumo was created. After creation of pneumoperitoneum, the 1 2 mm port was placed in the midline below costal margin. Two 5 mm ports were placed in the midclavic ular and anterior axillary line. Grasper and dissector were introduced. The patient found to have e xtensive adhesions and gallbladder was buried into the adhesions. First, the fundus was identified a nd dissection of omentum was done and it was retracted cranially. Infundibulum as well as Calot's tr iangle appeared to be extremely thickened and edematous as well as duodenum and the colon was order picker/assembler d and first, lysis of adhesion was done. Calot's triangle was identified. Cystic duct and cystic ar roz were also identified. First, cystic artery was clipped and the cystic duct appeared to be extre florinda dilated and thickened and now the top-down approach was done from the mid gallbladder up to the Calot's triangle and the critical view of safety was identified. After proper dissection of Calot's triangle, the cystic duct/common bile duct junction was identified and the cystic duct appeared to be extremely dilated and the cystic duct was stapled with Endo-HATTIE and the gallbladder was dissected fr ee from the gallbladder fossa, taken in EndoCatch bag, taken out through the umbilical port site and sent to the table for the pathology. There was proper hemostasis in each and every part of the proce dure and after removal of the gallbladder, the umbilical port site was closed in 2 layers, the fascia with 0 Vicryl interrupted sutures, skin with a 4-0 Monocryl. Dry sterile dressing was applied. The patient tolerated the procedure well. Count of instruments and gauze was correct. There was no guevara arent complication. The patient was extubated in the OR, sent to the postanesthesia care unit in sta ble condition. The patient also had a ventral supraumbilical hernia without any bowel herniation keshia t was left behind for the future repair. Lester Gerard MD cc: [id number] TT: 11/20/2016 12:56:09 en
== END 2016-11-19 11:00 | disposition home or self-care (01) | DRG 493 ==
LOC: C.ER 02:39 → C.9E 05:12 → C.3T 05:45
PROVIDERS: ADMIT Family Medicine; ATTEND Family Medicine
PROC: 0FN84ZZ Release Cystic Duct, Percutaneous Endoscopic Approach (ICD-10-PCS; 2016-11-17)
PROC: 0DNW4ZZ Release Peritoneum, Percutaneous Endoscopic Approach (ICD-10-PCS; 2016-11-17)
PROC: 0FT44ZZ Resection of Gallbladder, Percutaneous Endoscopic Approach (ICD-10-PCS; principal; 2016-11-17 11:30)
DX: K85.20 Alcohol induced acute pancreatitis without necrosis or infection (principal); K80.10 Calculus of gallbladder with chronic cholecystitis without obstruction; K86.0 Alcohol-induced chronic pancreatitis; K66.0 Peritoneal adhesions (postprocedural) (postinfection); K43.9 Ventral hernia without obstruction or gangrene; K21.9 Gastro-esophageal reflux disease without esophagitis; I10 Essential (primary) hypertension; E11.9 Type 2 diabetes mellitus without complications; F10.10 Alcohol abuse, uncomplicated; E78.5 Hyperlipidemia, unspecified; Z87.891 Personal history of nicotine dependence; Z79.4 Long term (current) use of insulin; Z90.710 Acquired absence of both cervix and uterus

== ENCOUNTER 2018-11-16 16:29 | Emergency (ER) | payer OTHER ==
[2018-11-16 16:29] VITALS: BMI 32.9
[2018-11-16 16:41] VITALS: BP 152/90; PULSE 76; RESP 18; TEMP 97.9; O2SAT 98
--- NOTE | 2018-11-16 17:11 | C.PDOC ---
History Of Present Illness 63 year old female presents to ED with complaint of cough and congestion for 3 days. Patient states the cough has become productive of white sputum. She states that she experienced shortness of breath last night and had to use her nebulizer. Patient has a PMH of asthma. She denies fever, runny nose, and chest pain. Time Seen by Provider: 11/16/18 16:42 Chief Complaint (Nursing): Cough, Cold, Congestion History Per: Patient History/Exam Limitations: no limitations Onset/Duration Of Symptoms: Days (3) Current Symptoms Are (Timing): Still Present Associated Symptoms: Cough, Sputum, Nasal Congestion. denies: Fever, Sore Throat, Sinus Drainage Past Medical History Reviewed: Historical Data, Nursing Documentation, Vital Signs Vital Signs: Last Vital Signs Temp 97.9 F 11/16/18 16:36 Pulse 76 11/16/18 16:36 Resp 18 11/16/18 16:36 BP 152/90 H 11/16/18 16:36 Pulse Ox 98 11/16/18 16:36 - Medical History PMH: Anemia, Arthritis, Asthma, Colonic Polyps, Gall Bladder Disease, HTN, Hypercholesterolemia, Pancreatitis Denies: Chronic Kidney Disease Surgical History: Cholecystectomy, Endoscopy - [facility] Procedures RELEASE CYSTIC DUCT, PERCUTANEOUS ENDOSCOPIC APPROACH (11/14/16) RELEASE PERITONEUM, PERCUTANEOUS ENDOSCOPIC APPROACH (11/14/16) RESECTION OF GALLBLADDER, PERCUTANEOUS ENDOSCOPIC APPROACH (11/14/16) Family History: States: Unknown Family Hx - Social History Hx Tobacco Use: No Hx Alcohol Use: No Hx Substance Use: No - Immunization History Hx Tetanus Toxoid Vaccination: No Hx Influenza Vaccination: Yes Hx Pneumococcal Vaccination: Yes Review Of Systems Constitutional: Negative for: Fever, Chills, Weakness ENT: Positive for: Nose Congestion. Negative for: Nose Discharge Cardiovascular: Negative for: Chest Pain Respiratory: Positive for: Cough, Shortness of Breath, Sputum (white in nature) Physical Exam - Physical Exam Appears: Well, Non-toxic, No Acute Distress Skin: Normal Color, Warm, Dry Head: Atraumatic, Normacephalic Eye(s): bilateral: Normal Inspection, EOMI Ear(s): Bilateral: Normal Nose: Normal Oral Mucosa: Moist Throat: Normal, No Erythema, No Exudate Neck: Normal ROM, Supple Chest: Symmetrical, No Deformity Cardiovascular: Rhythm Regular, No Murmur Respiratory: No Accessory Muscle Use, No Rales, No Rhonchi, No Wheezing Extremity: Normal ROM, Capillary Refill (<2 seconds) Neurological/Psych: Oriented x3, Normal Speech Gait: Steady ED Course And Treatment O2 Sat by Pulse Oximetry: 98 (in RA) Pulse Ox Interpretation: Normal Medical Decision Making Medical Decision Making: Impression: 63 year old female presents with cough and congestion Plan: Patient given Zithromax and prescription. Disposition Counseled Patient/Family Regarding: Diagnosis, Need For Followup, Rx Given - Disposition Referrals: Lidia Aviles MD [Medical Doctor] - Disposition: HOME/ ROUTINE Disposition Time: 17:20 Condition: GOOD Additional Instructions: Take antibiotic daily Take Tylenol or Motrin alternating every 4-6 hours for Fever 100.4F or higher. Rest and drink plenty of fluids. Cough medicine as needed Negro antibiticos diariamente Deaver Tylenol o Motrin alternando cada 4-6 horas para Fever 100.4F o ms. Descansa y patricia muchos lquidos. Medicina para la tos segn sea necesario Prescriptions: Azithromycin [Zithromax] 250 mg PO DAILY #4 tab Promethazine DM [Phenergan DM Syrup] 5 ml PO Q8 PRN #3 oz PRN Reason: Cough Instructions: Upper Respiratory Infection (ED) Print Language: ARMENIAN - POA Present On Arrival: None - Clinical Impression Clinical Impression: Upper respiratory infection - PA / [employer] / Resident Statement MD/DO has reviewed & agrees with the documentation as recorded. (Maisha Akins) - Scribe Statement The provider has reviewed the documentation as recorded by the Scribe (Maisha Akins) All medical record entries made by the Scribe were at my direction and personally dictated by me. I have reviewed the chart and agree that the record accurately reflects my personal performance of the history, physical exam, medical decision making, and the department course for this patient. I have also personally directed, reviewed, and agree with the discharge instructions and disposition.
== END 2018-11-16 17:25 | disposition home or self-care (01) ==
LOC: C.ER 16:29
DX: J06.9 Acute upper respiratory infection, unspecified (principal); Z87.891 Personal history of nicotine dependence